=== PATIENT | female | born 1965 | race Caucasian/White ===

== ENCOUNTER 2017-07-09 19:03 | Observation (INO) ==
--- NOTE | 2017-07-09 19:26 | Emergency Department Note ---
SOB HPI - General Chief Complaint: Shortness of Breath/Dyspnea Stated Complaint: shortness of breath, cough Time Seen by Provider: 07/09/17 19:21 Source: patient Mode of arrival: EMS Limitations: no limitations - History of Present Illness This patient was diagnosed with flu about 10 days ago and about 3 days ago she developed fairly significant cough shortness of breath and chest pain. However no nausea vomiting no fever and chills and she has been eating and drinking. Her vital signs here certainly do not look like sepsis but we will certainly check for that. - Related Data Home Medications Medication Instructions Recorded Confirmed Unobtainable [Unobtainable] 06/30/17 06/30/17 Allergies Allergy/AdvReac Type Severity Reaction Status Date / Time ciprofloxacin [From Cipro] Allergy Mild Hives Verified 07/09/17 19:08 methocarbamol [From Robaxin] Allergy Mild Hives Verified 07/09/17 19:08 nitrofurantoin Allergy Mild Hives Verified 07/09/17 19:08 [From Macrobid] Sulfa (Sulfonamide Allergy Mild Hives Verified 07/09/17 19:08 Antibiotics) codeine AdvReac Intermediate Agitated Verified 07/09/17 19:08 meperidine [From Demerol] AdvReac Mild Vomiting Verified 07/09/17 19:08 Review of Systems All systems ED: reviewed and negative except as stated. Past Medical History - Past Medical History Medical history: Reports: DM, thyroid disease, other (Chronic back pain) Surgical history ED: Reports: non-contributory, cholecystectomy, other (Kidney stone 3) - Social History smoking status: Never smoker Physical Exam Limitations: no limitations General appearance: alert Head: atraumatic Eye: Present: normal appearance ENT: normal exam Neck: Present: normal inspection Chest: Present: normal inspection Respiratory: Present: normal lung sounds bilaterally Cardiovascular: Present: regular rate, normal rhythm, normal heart sounds Abdominal: Present: soft. Absent: distention, tenderness Neurological: Present: alert Psychiatric: Present: normal affect, normal mood Skin: Present: warm, dry, intact Course Vital Signs Temperature 98.0 F 07/09/17 19:04 Pulse Rate 85 07/09/17 19:04 Respiratory Rate 22 07/09/17 19:04 Blood Pressure 130/81 07/09/17 19:04 Pulse Oximetry (%) 98 07/09/17 19:04 Temperature 98.0 F 07/09/17 19:04 Pulse Rate 87 07/09/17 20:10 Respiratory Rate 20 07/09/17 20:10 Blood Pressure 130/81 07/09/17 19:04 Pulse Oximetry (%) 98 07/09/17 19:04 Shortness of Breath/Dyspnea - [facility] Narrative Medical decision making narrative: Patient only abnormality is an elevated lactic acid of 4.5. We did do blood cultures and gave her Levaquin. She will be admitted to the hospital overnight. - Medical Records Medical records reviewed: Yes I reviewed the patient's medical records. - Lab Data Result diagrams: 07/09/17 19:29 07/09/17 19:29 Lab Results 07/09/17 07/09/17 07/09/17 Range/Units 19:29 19:29 19:29 WBC 8.9 (4.5-11.0) K/mcL RBC 5.24 H (4.00-5.20) M/mcL Hgb 14.0 (12.0-15.0) g/dL Hct 42.1 (36.0-48.0) % MCV 80.3 (80.0-100.0) fL MCH 26.8 (26.0-34.0) pg MCHC 33.3 (31.0-36.0) g/dL RDW 15.6 H (11.5-14.5) % Plt Count 252 (140-440) K/mcL MPV 8.3 (7.4-10.4) fL Gran % 60.8 (38.0-78.0) % Lymph % (Auto) 30.6 (15.5-49.0) % Hale % (Auto) 5.2 (1.0-12.0) % Eos % (Auto) 3.0 (0.0-7.0) % Baso % (Auto) 0.4 (0.0-2.0) % Gran # 5.4 (1.8-8.0) K/mcL Lymph # (Auto) 2.7 (1.5-4.8) K/mcL Hale # (Auto) 0.5 (0.1-0.9) K/mcL Eos # (Auto) 0.3 (0.0-0.7) K/mcL Baso # (Auto) 0 (0.0-0.3) K/mcL VBG Lactic Acid 4.5 H* (0.5-2.2) mmol/L Sodium 136 (133-145) mmol/L Potassium 4.4 (3.3-5.1) mmol/L Chloride 96 (96-108) mmol/L Carbon Dioxide 22 (22-30) mmol/L Anion Gap 18.0 H (8-16) BUN 9 (6-20) mg/dl Creatinine 0.7 (0.6-1.1) mg/dl GFR Calculation 99 Glucose 235 H (70-105) mg/dL Calcium 9.0 (8.6-10.4) mg/dl Total Bilirubin 0.2 (0.0-1.0) mg/dL AST 26 (0-37) U/l ALT 23 (0-40) U/l Alkaline Phosphatase 64 (39-117) U/L Total Protein 7.2 (5.9-8.4) gm/dL Albumin 4.3 (3.2-5.2) gm/dL Globulin 2.9 (2.2-3.7) gm/dL Albumin/Globulin Ratio 1.5 (1.0-2.3) Disposition 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
[2017-07-09 20:08] LABS: Basophils # (Auto) 0 K/mcL (0.0-0.3); Basophils % (Auto) 0.4 % (0.0-2.0); Eosinophils # (Auto) 0.3 K/mcL (0.0-0.7); Granulocytes % (Auto) 60.8 % (38.0-78.0); Lymphocytes # (Auto) 2.7 K/mcL (1.5-4.8); Lymphocytes % (Auto) 30.6 % (15.5-49.0); Mean Cell Volume 80.3 fL (80.0-100.0); Mean Corpuscular HGB Conc 33.3 g/dL (31.0-36.0); Mean Corpuscular Hemoglobin 26.8 pg (26.0-34.0); Monocytes # (Auto) 0.5 K/mcL (0.1-0.9); Monocytes % (Auto) 5.2 % (1.0-12.0); Platelet Count 252 K/mcL (140-440); RBC 5.24 M/mcL (4.00-5.20); Red Cell Distribution Width 15.6 % (11.5-14.5)
[2017-07-09] MEDS ORDERED: IPRATROPIUM/ALBUTEROL 3 ML AMPUL.NEB NEB ONE (20:09)
[2017-07-09 20:26] LABS: ALT/SGPT 23 U/l (0-40); Albumin 4.3 gm/dL (3.2-5.2); Albumin/Globulin Ratio 1.5 (1.0-2.3); Alkaline Phosphatase 64 U/L (39-117); Blood Urea Nitrogen 9 mg/dl (6-20)
[2017-07-09] MEDS ORDERED: LEVOFLOXACIN 750 MG/150 ML BAG IV ONE (20:28)
[2017-07-09] MEDS ORDERED: LACTATED RINGERS 1,000 ML IV ONE (20:38)
--- NOTE | 2017-07-09 22:03 | Internal Med History&Physical ---
Medical - H&P: [facility] Patient information: Note initiated : 07/09/17 at 10:03 pm Service Date, if different from initiated Date: [] Patient: Maggie Mccray 52 y/o F admitted on for shortness of breath, cough. Chief Complaint: cough, dyspnea History of present illness: Patient is a 52-year-old female with history of type 2 diabetes, hypothyroidism , hypertension, morbid obesity who presents the emergency department with dyspnea. She was seen at this facility on June 30, diagnosed with influenza and dehydration. She returned home, started feeling better late last week. However on Friday she had the onset of fairly severe cough. Her chest was "killing me" due to parasternal chest pain that occurred with coughing. She is also having pain along the lower margins of her rib cage with coughing. She is coughing so hard she is having trouble getting her breath at times. She is producing some yellowish phlegm at times. She has felt sweaty without any chills and has had no fever that she knows. Since Friday she's had dyspnea on exertion. She does have an inhaler at home, that may help somewhat. She is also started to lose her voice. She has had some headache, some sore throat which he thinks is from the coughing. She said no lower extremity edema, no sinus congestion. No nausea, vomiting, diarrhea or abdominal pain. No dysuria. She does have some tingling in her feet related to her nephropathy. She's been able to maintain good oral intake. Her glucoses of been a bit out of control running in the 170 range recently. She presents to ED for further evaluation. Initially, does not look particularly ill. Laboratories were sent, lactate returns at 4.5. However she does not have fever, she does not have tachycardia, she saturating well on room air, she does not have leukocytosis. She is being hospitalized for further monitoring and hydration and evaluation of lactic acidosis. She has received fluids and levofloxacin in the ED. Blood cultures have been obtained. All systems: reviewed and no additional remarkable complaints except as stated Medical - H&P: PMH Medical history: Type 2 diabetes mellitus with neuropathy Hypothyroidism Chronic back pain Hypertension Hypercholesterolemia Depression Tremors Morbid obesity Surgical history: Status post cholecystectomy Status post kidney stone removal Pertinent family history: Brother has breast cancer. Another brother has lymphoma. Also history of diabetes and hypertension the family. Social history: She does not smoke cigarettes. She does not drink alcohol. Medical - H&P: Meds Home Medications Medication Instructions Recorded Confirmed Type Ascorbic Acid [Vitamin C] 1,000 mg PO QDAY 07/09/17 07/09/17 History Aspirin [Yenni Chewable Aspirin] 81 mg PO QDAY 07/09/17 07/09/17 History Atorvastatin [Lipitor] 40 mg PO ONCE 07/09/17 07/09/17 History Bisoprolol Fumarate 5 mg PO HS 07/09/17 07/09/17 History Cranberry 15,000 mg PO BID 07/09/17 07/09/17 History Cyanocobalamin (Vitamin B-12) 1,000 mcg PO QDAY 07/09/17 07/09/17 History [Vitamin B12] Echinacea 760 mg PO QDAY 07/09/17 07/09/17 History Empagliflozin/Metformin HCl 1 each PO QDAY 07/09/17 07/09/17 History [Synjardy Xr 10-1,000 mg Tablet] Escitalopram [Lexapro] 20 mg PO DAILY 07/09/17 07/09/17 History Gabapentin [Neurontin] 600 mg PO TID 07/09/17 07/09/17 History LORazepam [Ativan] 1 mg PO TIDP MDD 4 mg 07/09/17 07/09/17 History Levothyroxine [Synthroid] 200 mcg PO DAILY 07/09/17 07/09/17 History Losartan Potassium [Cozaar] 25 mg PO BID 07/09/17 07/09/17 History Omeprazole [PriLOSEC] 20 mg PO BID 07/09/17 07/09/17 History PHENobarbital [Phenobarbital] 2 tab PO HS 07/09/17 07/09/17 History PHENobarbital [Phenobarbital] 32.4 mg PO QDAY 07/09/17 07/09/17 History Potassium Chloride [Klor-Con M10] 10 meq PO BID 07/09/17 07/09/17 History Pramipexole [Mirapex] 0.125 mg PO TID 07/09/17 07/09/17 History Spironolactone [Aldactone] 100 mg PO QDAY 07/09/17 07/09/17 History Tylenol 1,000 mg PO PRN 07/09/17 History traMADol HCL [Ultram] 50 mg PO Q6HP PRN 07/09/17 07/09/17 History Allergies Allergy/AdvReac Type Severity Reaction Status Date / Time ciprofloxacin [From Cipro] Allergy Mild Hives Verified 07/09/17 19:08 methocarbamol [From Robaxin] Allergy Mild Hives Verified 07/09/17 19:08 nitrofurantoin Allergy Mild Hives Verified 07/09/17 19:08 [From Macrobid] Sulfa (Sulfonamide Allergy Mild Hives Verified 07/09/17 19:08 Antibiotics) codeine AdvReac Intermediate Agitated Verified 07/09/17 19:08 meperidine [From Demerol] AdvReac Mild Vomiting Verified 07/09/17 19:08 Medical - H&P: Exam - Constitutional Vitals: Temp Pulse Resp BP Pulse Ox 98.0 F 86 20 133/78 96 07/09/17 19:04 07/09/17 21:31 07/09/17 20:10 07/09/17 21:31 07/09/17 21:31 Exam: General: Alert, uncomfortable-appearing HEENT: Normocephalic. Pupils are equally round and reactive to light. Sclera are anicteric. No conjunctival injection. Oropharynx is with moist mucous membranes, no lip or gum lesions. Tongue is midline. Neck: Supple, no meningismus. No thyromegaly. Chest: Scattered expiratory wheezes, respirations are mildly labored, no rales or rhonchi. Cardiovascular: Regular rate and rhythm without murmur gallop or rub. Carotid pulses are 2+ without bruit. There is no lower extremity edema. Abdomen: Soft, obese, nontender without guarding or rebound. Active bowel sounds. No hepatosplenomegaly cannot be evaluated due to body habitus. Lymphatic: No cervical or supraclavicular lymphadenopathy. Skin: Warm, dry. Skin turgor is normal Musculoskeletal: No joint erythema or tenderness. Normal range of motion in the upper and lower extremities. Strength 5/5 in upper and lower extremities. Digits without cyanosis or clubbing. Neuro: Alert, oriented X3. Cranial nerves II through XII grossly intact. Sensation intact to light touch. DTR trace in the upper and lower extremity. Psychiatric: Affect and orientation are normal. Good insight. Medical - H&P: Reslt - Labs CBC & Chem 7: 07/09/17 19:29 07/09/17 19:29 Labs: Short CBC 07/09/17 Range/Units 19:29 WBC 8.9 (4.5-11.0) K/mcL Hgb 14.0 (12.0-15.0) g/dL Hct 42.1 (36.0-48.0) % Plt Count 252 (140-440) K/mcL BMP 07/09/17 19:29 Sodium 136 Potassium 4.4 Chloride 96 Carbon Dioxide 22 BUN 9 Creatinine 0.7 Glucose 235 H Calcium 9.0 Liver Function 07/09/17 Range/Units 19:29 Total Bilirubin 0.2 (0.0-1.0) mg/dL AST 26 (0-37) U/l ALT 23 (0-40) U/l Alkaline Phosphatase 64 (39-117) U/L Albumin 4.3 (3.2-5.2) gm/dL Abnormal Lab Results 07/09/17 07/09/17 07/09/17 19:29 19:29 19:29 RBC 5.24 H RDW 15.6 H VBG Lactic Acid 4.5 H* Anion Gap 18.0 H Glucose 235 H - Imaging and Cardiology Chest x-ray Status: image reviewed by me (Poor inspiratory effort, similar to 06/30/17) Medical - H&P: A/P (1) Lactic acidosis Current visit: Yes Status: Acute (2) Acute bronchospasm due to viral infection Current visit: Yes Status: Acute (3) Type 2 diabetes mellitus with diabetic neuropathy Current visit: Yes Status: Chronic (4) Hypertension Current visit: Yes Status: Chronic - Narrative A/P Narrative: 52-year-old female presents with progressive cough and dyspnea. Found to have isolated elevated lactate without evidence of sepsis or SIRS. Lactic acidosis. Could be secondary to dehydration from cough and insensible losses. No evidence of SIRS, no tachycardia, no tachypnea, no leukocytosis. Lower suspicion for sepsis given her presentation. Other potential etiologies could include metformin which is included in one of her antidiabetic medications , though this again, and outside this a.m. of renal or hepatic failure. Patient has been cultured in the ED, received a dose of Rocephin. Given her multiple comorbidities, she'll be hospitalized and observed overnight to ensure improvement. Plan: Observation hospitalization, hydration, trend lactate. Acute bronchospasm secondary to viral infection. Patient with significant bronchospasm, which is likely contributing to her cough. Could be post- influenza bronchospasm. Chest x-ray does not suggest a pneumonia. Plan: Scheduled albuterol nebs with when necessary every 2 hours. Type 2 diabetes mellitus. She is on Toujeo, Victoza and Synjardi. During acute hospitalization will manage with insulin and sliding scale. Plan: Diabetic diet, Accu-Cheks, sliding scale insulin Hypertension. Blood pressure controlled currently. Plan: Continue home regimen. Prophylaxis: Subcutaneous Lovenox. CODE STATUS: Full code
[2017-07-09] MEDS ORDERED: PHENobarbital 32.4 MG TABLET PO SCH ×2 (22:24→23:40)
[2017-07-09] MEDS ORDERED: LORazepam 1 MG TABLET PO PRN (22:24)
[2017-07-09] MEDS ORDERED: guaiFENesin/CODEINE 10 ML UDC PO PRN (22:24)
[2017-07-09] MEDS ORDERED: DEXTROSE 31 GM ORAL.SUSP PO PRN (22:24)
[2017-07-09] MEDS ORDERED: DEXTROSE 50% 50 ML VIAL IV PRN (22:24)
[2017-07-09] MEDS ORDERED: ALBUTEROL SULFATE 2.5 MG/3 ML NEBULIZER NEB PRN (22:24)
[2017-07-09] MEDS ORDERED: ONDANSETRON 4 MG/2 ML VIAL IV PRN (22:24)
[2017-07-09] MEDS: 0.9 % SODIUM CHLORIDE 10 ML SYRINGE IV SCH (23:06)
[2017-07-09] MEDS: 0.9 % SODIUM CHLORIDE 1,000 ML IV SCH (23:06)
[2017-07-09] MEDS ORDERED: GABAPENTIN 300 MG CAPSULE ONE (23:52)
[2017-07-09] MEDS ORDERED: PHENobarbital 32.4 MG TABLET ONE (23:52)
[2017-07-09] MEDS ORDERED: traMADol 50 MG TABLET PO ONE (23:54)
[2017-07-09] MEDS ORDERED: INSULIN LISPRO 1 UNIT/0.01 ML UNIT SQ ONE (23:55)
[2017-07-09] MEDS ORDERED: LORazepam 1 MG TABLET ONE (23:55)
[2017-07-09] MEDS ORDERED: ACETAMINOPHEN 325 MG TABLET PO ONE (23:56)
[2017-07-10] MEDS ORDERED: ALBUTEROL SULFATE 2.5 MG/3 ML NEBULIZER ONE (00:19)
[2017-07-10] MEDS: guaiFENesin/DEXTROMETHORPHAN ORAL SOL PO PRN ×4 (00:35→17:16)
[2017-07-10] MEDS: ALBUTEROL SULFATE 2.5 MG/3 ML NEBULIZER NEB SCH ×4 (00:55→12:20)
[2017-07-10 02:52] LABS: Appearance,Urine HAZY; Bacteria,Urine 0 /hpf (0); Bilirubin,Urine NEG (NEG); Color,Urine YELLOW; Glucose,Urine (UA) >=500 mg/dL (NEG); Leukocyte Esterase,Urine 250 /uL (NEG); Mucus,Urine FEW /hpf (0); Protein,Urine NEG (NEG); Specific Gravity,Urine 1.041 (1.000-1.035); Urine Blood NEG mg/dL (<0.03); Urine Budding Yeast FEW /hpf (0); Urine RBC 13 /hpf (0-1); Urine Squamous Epithelial Cell 3 /hpf (0-4); Urine Transitional Epi Cells < 1 /hpf (0-2); Urine WBC 80 /hpf (0-4); Urobilinogen,Urine NEG (NEG)
[2017-07-10] MEDS: 0.9 % SODIUM CHLORIDE 10 ML SYRINGE IV SCH ×2 (05:05→13:22)
--- NOTE | 2017-07-10 06:07 | XRay Report ---
CLINICAL INFORMATION: Cough COMPARISON: 05/24/2017 and 04/29/2018 chest x-rays FINDINGS: Film taken in lordotic positioning, right rotation rotation and suboptimal inspiration which accentuates the cardiomediastinal silhouette. Pulmonary vessels are unremarkable. Small right basilar infiltrate is developed with minor airspace in the left base. No definite effusion IMPRESSION: Small right basilar infiltrate suspect developing left basilar infiltrate. Mild cardiomegaly Potential widening of the mediastinum. Patient should return for two view PA and lateral chest x-ray to reevaluate the mediastinum to exclude adenopathy in other pathology Interpreted and Authenticated by: Dean Green 07/10/17
[2017-07-10 06:56] LABS: Mean Cell Volume 80.7 fL (80.0-100.0); Mean Corpuscular HGB Conc 32.9 g/dL (31.0-36.0); Mean Corpuscular Hemoglobin 26.6 pg (26.0-34.0); Platelet Count 209 K/mcL (140-440); RBC 4.71 M/mcL (4.00-5.20); Red Cell Distribution Width 15.4 % (11.5-14.5)
[2017-07-10 07:27] LABS: Blood Urea Nitrogen 9 mg/dl (6-20)
[2017-07-10] MEDS ORDERED: LEVOTHYROXINE 100 MCG TABLET PO SCH (07:30)
[2017-07-10] MEDS: ACETAMINOPHEN 325 MG TABLET PO PRN ×2 (07:31→13:26)
[2017-07-10] MEDS: OMEPRAZOLE 20 MG CAPSULE PO SCH ×2 (07:31→17:16)
[2017-07-10] MEDS: traMADol 50 MG TABLET PO PRN ×2 (07:31→13:26)
[2017-07-10] MEDS ORDERED: 0.9 % SODIUM CHLORIDE 1,000 ML IV ONE (07:55)
[2017-07-10 08:04] LABS: Eosinophils % (Manual) 1 % (0-7); Lymphocytes % 42 % (15-49); Monocytes % (Manual) 4 % (1-12); Platelet Estimate NORMAL (NORMAL); RBC Morphology NORMAL (NORMAL); Segmented Neutrophils % 53 % (38-78)
[2017-07-10] MEDS: PRAMIPEXOLE 0.25 MG TABLET PO SCH ×2 (08:23→15:38)
[2017-07-10] MEDS: POTASSIUM CHLORIDE 10 MEQ TABLET PO SCH ×2 (08:24→17:41)
[2017-07-10] MEDS: GABAPENTIN 300 MG CAPSULE PO SCH ×2 (08:24→15:36)
[2017-07-10] MEDS: INSULIN LISPRO 1 UNIT/0.01 ML UNIT SQ SCH ×3 (08:25→17:25)
[2017-07-10 08:34] LABS: Estimated Average Glucose(eAG) 206 mg/dL; Hemoglobin A1C 8.8 % HGB (4.0-6.0)
[2017-07-10] MEDS: 0.9 % SODIUM CHLORIDE 1,000 ML IV SCH ×2 (08:47→17:41)
[2017-07-10] MEDS ORDERED: ENOXAPARIN 40 MG/0.4 ML SYRINGE SQ SCH (09:00)
[2017-07-10] MEDS ORDERED: LORATADINE 10 MG TABLET PO SCH (09:00)
[2017-07-10] MEDS ORDERED: SPIRONOLACTONE 25 MG TABLET PO SCH (09:00)
[2017-07-10] MEDS ORDERED: LOSARTAN 25 MG TABLET PO SCH (09:00)
[2017-07-10] MEDS ORDERED: ASPIRIN 81 MG TAB.CHEW PO SCH (09:00)
[2017-07-10] MEDS ORDERED: GABAPENTIN 300 MG CAPSULE PO SCH ×2 (09:00→21:00)
[2017-07-10] MEDS ORDERED: ESCITALOPRAM 20 MG TABLET PO SCH (09:00)
[2017-07-10] MEDS ORDERED: PHENobarbital 32.4 MG TABLET PO SCH (09:00)
[2017-07-10] MEDS ORDERED: ALBUTEROL SULFATE 2.5 MG/3 ML NEBULIZER NEB SCH (11:00)
[2017-07-10] MEDS ORDERED: LEVOFLOXACIN 500 MG/100 ML BAG IV SCH (12:00)
[2017-07-10] MEDS ORDERED: 0.9 % SODIUM CHLORIDE 500 ML IV ONE (13:29)
[2017-07-10] MEDS ORDERED: FLUCONAZOLE 100 MG TABLET PO ONE (17:26)
--- NOTE | 2017-07-10 18:10 | Discharge Summary ---
Medical - DS: Prov Patient information: Note initiated : 07/10/17 at 6:06 pm Service Date, if different from initiated Date: [] Patient: Maggie Mccray 52 y/o F admitted on 07/09/17 for SOB, Cough/ Progressive Cough and Dyspnea, elevated lactate. Date of admission: 07/09/17 22:22 Discharge date: 07/10/17 Primary care physician: Stella Mckinley Admitting clinician: Estelle Concepcion Discharging clinician: Estelle Concepcion Medical - DS: Meds - Discharge Medications Prescriptions: Levofloxacin [Levaquin] 500 mg PO DAILY #3 tab Active and Home Medications: Home Medications Ascorbic Acid [Vitamin C] 1,000 mg PO QDAY 07/09/17 [History Confirmed 07/09/17 Last Taken 07/09/17 10:00] Aspirin [Yenni Chewable Aspirin] 81 mg PO QDAY 07/09/17 [History Confirmed 07/09 Last Taken 07/09/17 10:00] Atorvastatin [Lipitor] 40 mg PO HS 07/09/17 [History Confirmed 07/10/17 Last Taken 07/08/17 20:00] Bisoprolol Fumarate 5 mg PO HS 07/09/17 [History Confirmed 07/09/17 Last Taken 07/08/17 20:00] Cranberry 15,000 mg PO BID 07/09/17 [History Confirmed 07/09/17 Last Taken 07/09 10:00] Cyanocobalamin (Vitamin B-12) [Vitamin B12] 1,000 mcg PO QDAY 07/09/17 [History Confirmed 07/09/17 Last Taken 07/09/17 10:00] Echinacea 760 mg PO QDAY 07/09/17 [History Confirmed 07/09/17 Last Taken 10:00] Empagliflozin/Metformin HCl [Synjardy Xr 10-1,000 mg Tablet] 1 each PO QDAY [History Confirmed 07/09/17 Last Taken 07/09/17 10:00] Escitalopram [Lexapro] 20 mg PO DAILY 07/09/17 [History Confirmed 07/09/17 Last Taken 07/09/17 10:00] Gabapentin [Neurontin] 600 mg PO TID 07/09/17 [History Confirmed 07/09/17 Last Taken 07/09/17 15:00] Insulin Glargine,Hum.rec.anlog [Toujeo Solostar] 35 ml SQ DAILY 07/09/17 [ History Confirmed 07/09/17 Last Taken 07/09/17 10:00] LORazepam [Ativan] 1 mg PO TIDP MDD 4 mg 07/09/17 [History Confirmed 07/09/17 Last Taken 07/09/17 11:00] Levothyroxine [Synthroid] 200 mcg PO DAILY 07/09/17 [History Confirmed 07/09/17 Last Taken 07/08/17 10:00] Liraglutide [Victoza 2-Shahbaz] 1.8 ml SC DAILY 07/09/17 [History Confirmed Last Taken 07/09/17 10:00] Losartan Potassium [Cozaar] 25 mg PO BID 07/09/17 [History Confirmed 07/09/17 Last Taken 07/09/17 10:00] Omeprazole [PriLOSEC] 20 mg PO BID 07/09/17 [History Confirmed 07/09/17 Last Taken 07/09/17 10:00] PHENobarbital [Phenobarbital] 2 tab PO HS 07/09/17 [History Confirmed 07/09/17 Last Taken 07/08/17 21:00] PHENobarbital [Phenobarbital] 32.4 mg PO QDAY 07/09/17 [History Confirmed Last Taken 07/09/17 10:00] Potassium Chloride [Klor-Con M10] 10 meq PO BID 07/09/17 [History Confirmed Last Taken 07/09/17 10:00] Pramipexole [Mirapex] 0.125 mg PO TID 07/09/17 [History Confirmed 07/09/17 Last Taken 07/09/17 11:00] Spironolactone [Aldactone] 100 mg PO QDAY 07/09/17 [History Confirmed 07/09/17 Last Taken 07/09/17 10:00] Tylenol 1,000 mg PO TIDP PRN 07/09/17 [History Confirmed 07/10/17 Last Taken 11:00] traMADol HCL [Ultram] 50 mg PO Q6HP PRN 07/09/17 [History Confirmed 07/09/17 Last Taken 07/09/17 11:00] Medical - DS: Hosp Hospital course: 2/14 Patient is a 52-year-old female with history of type 2 diabetes, hypothyroidism , hypertension, morbid obesity who presents the emergency department with dyspnea. She was seen at this facility on June 30, diagnosed with influenza and dehydration. She returned home, started feeling better late last week. However on Friday she had the onset of fairly severe cough. Her chest was "killing me" due to parasternal chest pain that occurred with coughing. She is also having pain along the lower margins of her rib cage with coughing. She is coughing so hard she is having trouble getting her breath at times. She is producing some yellowish phlegm at times. She has felt sweaty without any chills and has had no fever that she knows. Since Friday she's had dyspnea on exertion. She does have an inhaler at home, that may help somewhat. She is also started to lose her voice. She has had some headache, some sore throat which he thinks is from the coughing. She said no lower extremity edema, no sinus congestion. No nausea, vomiting, diarrhea or abdominal pain. No dysuria. She does have some tingling in her feet related to her nephropathy. She's been able to maintain good oral intake. Her glucoses of been a bit out of control running in the 170 range recently. She presents to ED for further evaluation. Initially, does not look particularly ill. Laboratories were sent, lactate returns at 4.5. However she does not have fever, she does not have tachycardia, she saturating well on room air, she does not have leukocytosis. She is being hospitalized for further monitoring and hydration and evaluation of lactic acidosis. She has received fluids and levofloxacin in the ED. Blood cultures have been obtained. 07/10 Patient remained afebrile, lactate slowly trended down to normal with fluid hydration. She remained alert, extremities warm and perfused and maintained good urine output. Urinalysis was abnormal with white cells, some red cells, budding yeast but only 1 bacterium. She was continued on levofloxacin in the hospital (she has a Cipro allergy but tolerated Levaquin). She'll be discharged with levofloxacin to complete a 5 day course short course for possible urinary tract infection. She is also complaining of possible yeast infection, received single-dose therapy with 100 mg Diflucan while in the hospital. The patient's wheezing and cough improved. She was treated with albuterol. That did cause some jitteriness and discomfort, that was changed to when necessary. Patient's admission chest radiograph was formally read as possible small right infiltrate. She'll be continued on a total of 5 days of fluoroquinolone for possible bacterial pneumonia. Cultures remained without growth. Her white count remained normal. Vital signs remained stable. There is no evidence of systemic inflammatory response syndrome or sepsis. Her asthmatic bronchitis secondary to viral upper respiratory tract infection is improved. She is discharged to home. Etiology of her lactate may have been secondary to significant dehydration from her antecedent viral illness, though she displayed no evidence of systemic hypoperfusion. Metformin therapy is also a possibility, though acidosis associated with that is usually in conjunction with renal failure or overdose. The patient will be asked to hold her metformin combination (Synjardy) for the next week. Discharge diagnosis: Lactic acidosis, undetermined etiology. Not a sepsis diagnosis. Secondary discharge diagnosis: Post-viral asthmatic bronchitis, improved Urinary tract infection Possible right lower lobe infiltrate Type 2 DM - Time Spent with Patient Total time spent providing and/or coordinating discharge services: Greater than 30 minutes Medical - DS: Exam - Constitutional Vitals: Vital Signs Temp Pulse Pulse Resp BP BP Pulse Ox 07/10/17 15:50 96.5 F L 18 147/79 96 07/10/17 14:57 16 07/10/17 13:28 75 14 137/80 97 07/10/17 12:41 98.8 F 78 16 149/78 97 07/10/17 12:00 97.6 F 18 147/79 95 07/10/17 11:49 98 07/10/17 11:47 83 21 07/10/17 07:59 97.1 F 18 142/92 95 07/10/17 04:00 98.5 F 90 22 163/80 97 07/09/17 22:23 98.7 F 84 18 134/80 97 07/09/17 22:22 98.7 F 84 18 134/80 97 07/09/17 21:31 86 133/78 96 07/09/17 21:01 134/82 07/09/17 20:38 136/119 07/09/17 20:10 87 20 07/09/17 20:01 144/117 07/09/17 19:54 84 127/93 96 07/09/17 19:04 98.0 F 85 22 130/81 98 Intake and Output 07/10/17 07/10/17 07/10/17 05:59 13:59 21:59 Intake Total 2390 / 2390 2660 / 2660 1100 / 1100 Output Total 925 / 925 1425 / 1425 550 / 550 Balance 1465 / 1465 1235 / 1235 550 / 550 Intake: IV 1150 / 1150 1100 / 1100 500 / 500 Sodium Chloride 0.9% 500 ml @ 500 / 500 Wide Open IV BOLUS ONE Rx#: [id number] Lactated Ringers 1,000 ml @ 1000 / 1000 Wide Open IV BOLUS ONE Rx#: [id number] Oral 1240 / 1240 1560 / 1560 600 / 600 Output: Void Amount 925 / 925 1425 / 1425 550 / 550 Other: Meal [employer] Lunch Dinner Percent of Meal Consumed 100% 100% 100% Feeding Ability Independent # Voids 1 Weight 310 lb Additional comments: General: Sitting in bed, looks comfortable Chest: Clear to auscultation with good aeration, no prolonged expiratory phase, no wheezing or rhonchi Cardio vascular: Regular rate and rhythm Abdomen: Soft nontender Neuro: Alert, oriented 3, no new findings, has stable lower extremity neuropathy Medical - DS: Data Labs on day of discharge: Laboratory Results - last 24 hr 07/09/17 07/09/17 07/09/17 02:17 19:29 19:29 WBC 8.9 RBC 5.24 H Hgb 14.0 Hct 42.1 MCV 80.3 MCH 26.8 MCHC 33.3 RDW 15.6 H Plt Count 252 MPV 8.3 Gran % 60.8 Lymph % (Auto) 30.6 Wells % (Auto) 5.2 Eos % (Auto) 3.0 Baso % (Auto) 0.4 Gran # 5.4 Lymph # (Auto) 2.7 Wells # (Auto) 0.5 Eos # (Auto) 0.3 Baso # (Auto) 0 Total Counted Seg Neutrophils % Band Neutrophils % Lymphocytes % Monocytes % (Manual) Eosinophils % (Manual) Platelet Estimate RBC Morphology VBG Lactic Acid Sodium 136 Potassium 4.4 Chloride 96 Carbon Dioxide 22 Anion Gap 18.0 H BUN 9 Creatinine 0.7 GFR Calculation 99 Glucose 235 H Hemoglobin A1c Estim Average Glucose Calcium 9.0 Total Bilirubin 0.2 AST 26 ALT 23 Alkaline Phosphatase 64 Total Protein 7.2 Albumin 4.3 Globulin 2.9 Albumin/Globulin Ratio 1.5 Urine Color Yellow Urine Appearance Hazy Urine pH 5.0 Ur Specific [place] 1.041 H Urine Protein Neg Urine Glucose (UA) >=500 A Urine Ketones 5/tr A Urine Occult Blood Neg Urine Nitrate Neg Urine Bilirubin Neg Urine Urobilinogen Neg Ur Leukocyte Esterase 250 A Urine RBC 13 H Urine WBC 80 H Ur Squamous Epith Cells 3 Ur Transition Epith Cell < 1 Urine Bacteria 0 Urine Mucus Few Urine Yeast (Budding) Few A Ur Culture Indicated? Yes 07/09/17 07/10/17 07/10/17 19:29 00:58 04:05 WBC RBC Hgb Hct MCV MCH MCHC RDW Plt Count MPV Gran % Lymph % (Auto) Wells % (Auto) Eos % (Auto) Baso % (Auto) Gran # Lymph # (Auto) Wells # (Auto) Eos # (Auto) Baso # (Auto) Total Counted Seg Neutrophils % Band Neutrophils % Lymphocytes % Monocytes % (Manual) Eosinophils % (Manual) Platelet Estimate RBC Morphology VBG Lactic Acid 4.5 H* 3.1 H Sodium 139 Potassium 3.7 Chloride 102 Carbon Dioxide 23 Anion Gap 14.0 BUN 9 Creatinine 0.6 GFR Calculation 104 Glucose 194 H Hemoglobin A1c Estim Average Glucose Calcium 8.4 L Total Bilirubin AST ALT Alkaline Phosphatase Total Protein Albumin Globulin Albumin/Globulin Ratio Urine Color Urine Appearance Urine pH Ur Specific [place] Urine Protein Urine Glucose (UA) Urine Ketones Urine Occult Blood Urine Nitrate Urine Bilirubin Urine Urobilinogen Ur Leukocyte Esterase Urine RBC Urine WBC Ur Squamous Epith Cells Ur Transition Epith Cell Urine Bacteria Urine Mucus Urine Yeast (Budding) Ur Culture Indicated? 07/10/17 07/10/17 07/10/17 05:05 05:05 05:05 WBC 7.6 RBC 4.71 Hgb 12.5 Hct 38.0 MCV 80.7 MCH 26.6 MCHC 32.9 RDW 15.4 H Plt Count 209 MPV 8.3 Gran % Lymph % (Auto) Wells % (Auto) Eos % (Auto) Baso % (Auto) Gran # Lymph # (Auto) Wells # (Auto) Eos # (Auto) Baso # (Auto) Total Counted 100 Seg Neutrophils % 53 Band Neutrophils % Not Reportable Lymphocytes % 42 Monocytes % (Manual) 4 Eosinophils % (Manual) 1 Platelet Estimate Normal RBC Morphology Normal VBG Lactic Acid 3.2 H Sodium Potassium Chloride Carbon Dioxide Anion Gap BUN Creatinine GFR Calculation Glucose Hemoglobin A1c 8.8 H Estim Average Glucose 206 Calcium Total Bilirubin AST ALT Alkaline Phosphatase Total Protein Albumin Globulin Albumin/Globulin Ratio Urine Color Urine Appearance Urine pH Ur Specific [place] Urine Protein Urine Glucose (UA) Urine Ketones Urine Occult Blood Urine Nitrate Urine Bilirubin Urine Urobilinogen Ur Leukocyte Esterase Urine RBC Urine WBC Ur Squamous Epith Cells Ur Transition Epith Cell Urine Bacteria Urine Mucus Urine Yeast (Budding) Ur Culture Indicated? 07/10/17 07/10/17 12:11 16:53 WBC RBC Hgb Hct MCV MCH MCHC RDW Plt Count MPV Gran % Lymph % (Auto) Wells % (Auto) Eos % (Auto) Baso % (Auto) Gran # Lymph # (Auto) Wells # (Auto) Eos # (Auto) Baso # (Auto) Total Counted Seg Neutrophils % Band Neutrophils % Lymphocytes % Monocytes % (Manual) Eosinophils % (Manual) Platelet Estimate RBC Morphology VBG Lactic Acid 2.5 H 1.7 Sodium Potassium Chloride Carbon Dioxide Anion Gap BUN Creatinine GFR Calculation Glucose Hemoglobin A1c Estim Average Glucose Calcium Total Bilirubin AST ALT Alkaline Phosphatase Total Protein Albumin Globulin Albumin/Globulin Ratio Urine Color Urine Appearance Urine pH Ur Specific [place] Urine Protein Urine Glucose (UA) Urine Ketones Urine Occult Blood Urine Nitrate Urine Bilirubin Urine Urobilinogen Ur Leukocyte Esterase Urine RBC Urine WBC Ur Squamous Epith Cells Ur Transition Epith Cell Urine Bacteria Urine Mucus Urine Yeast (Budding) Ur Culture Indicated? - Imaging and Cardiology Chest x-ray Additional comments: FINDINGS: Film taken in lordotic positioning, right rotation rotation and suboptimal inspiration which accentuates the cardiomediastinal silhouette. Pulmonary vessels are unremarkable. Small right basilar infiltrate is developed with minor airspace in the left base. No definite effusion IMPRESSION: -Small right basilar infiltrate suspect developing left basilar infiltrate. -Mild cardiomegaly -Potential widening of the mediastinum. Patient should return for two view PA and lateral chest x-ray to reevaluate the mediastinum to exclude adenopathy in other pathology Medical - DS: A/P - Patient/Caregiver Discharge Instructions Activity: increase activity as tolerated Diet: Consistent Carbohydrate Additional Instructions: Follow up with your primary care physician. You should have a repeat chest x- ray in about 2 weeks. Do not take Synjardy for the next week. - Problem Maintenance (1) Lactic acidosis Status: Resolved (2) Acute bronchospasm due to viral infection Status: Acute (3) Type 2 diabetes mellitus with diabetic neuropathy Status: Chronic (4) Hypertension Status: Chronic Qualifiers: Hypertension type: essential hypertension Qualified Code(s): I10 - Essential (primary) hypertension - Follow up Plan Follow up with: Stella Mckinley ARNP [Primary Care Provider] - (1-2 weeks) Disposition: Home, Self-Care Prognosis: Good Rehab Potential: Good I certify that the patient requires SNF services: No Overall status at discharge: patient is progressing back to baseline
[2017-07-10] MEDS ORDERED: ATORVASTATIN 20 MG TABLET PO SCH (21:00)
[2017-07-10] MEDS ORDERED: BISOPROLOL 5 MG TABLET PO SCH (21:00)
== END 2017-07-10 19:15 | disposition home or self-care (01) ==
LOC: MEDSUR 19:03 → ED 19:03 → MEDSUR 22:24
PROVIDERS: ADMIT Internal Medicine; ATTEND Internal Medicine

== ENCOUNTER 2022-08-01 10:01 | Inpatient (IN) ==
[2022-08-01 10:28] LABS: POC Calcium, Ionized 1.04 (1.16-1.32); POC Potassium 3.1 (3.3-5.1)
[2022-08-01] MEDS ORDERED: 0.9 % SODIUM CHLORIDE 1,000 ML IV ONE ×3 (10:36→11:59)
--- NOTE | 2022-08-01 10:42 | Emergency Department Note ---
HPI General Chief complaint: Blood Sugar Problem Stated complaint: High Blood Glucose Time Seen by Provider: 08/01/22 10:16 Source: patient Mode of arrival: ambulatory Limitations: no limitations History of Present Illness HPI Narrative: 57-year-old morbidly obese female with Parkinson's and T2DM with chronic right great toe ulceration currently being treated at our wound care clinic presents to the ER from wound care with complaints of elevated blood sugar and mild confusion with somnolence. Upon presentation to the ER the patient's blood sugar is 527. She is denying nausea and vomiting. Caregiver is with her and states that this morning she was very fatigued, less interactive, and seemed confused. She denies that she has been having fevers. The patient states she gave herself 60 units of subcutaneo us insulin this morning after eating a few pieces of toast. Patient previously had an insulin pump, but has been fighting with insurance to get this replaced since January after [place]. She states that her blood sugars are typically well controlled, but since she has been fighting this infection in her toe there have been persistently elevated. She states that she does feel that she is able to deliver her insulin appropriately. She does take a daily dose of Tresiba 25 mg daily, and semaglutide weekly on top of her mealtime insulin. Related Data Home Medications Medication Instructions Recorded Confirmed Itzel LOYATP MIS 8MM [id number] Misc Not Applicable 06/16/19 07/22/22 liraglutide [Victoza 2-Shahbaz] 1.8 mg subcut QAM 08/16/20 07/22/22 mecobalamin (vitamin B12) 1,000 mcg PO QDAY 08/16/20 07/22/22 multivitamin (Multiple Vitamins 1 tab PO QDAY 08/16/20 07/22/22 tablet) insulin lispro 200 unit/mL (3 mL) 1 unit subcut QACBREAK 01/24/21 07/22/22 subcutaneous pen (Humalog KwikPen U-200 Insulin) cholecalciferol (vitamin D3) 25 25 mcg PO BID 04/18/21 07/22/22 mcg (1,000 unit) capsule aspirin 81 mg tablet,delayed 81 mg PO QAM 06/06/21 07/22/22 release ferrous sulfate 325 mg (65 mg 325 mg PO QDAY 06/06/21 07/22/22 iron) tablet levothyroxine 75 mcg tablet 75 mcg PO QDAY 06/06/21 07/22/22 metolazone 2.5 mg tablet 2.5 mg PO .2xw 06/06/21 07/22/22 pen needle, diabetic 31 gauge x #1,200 ea 06/06/21 07/22/22 5/16" (BD Ultra-Fine Short Pen Needle) spironolactone 100 mg tablet 100 mg PO QAM 06/06/21 07/22/22 lansoprazole 30 mg capsule,delayed 30 mg PO BID 07/03/21 07/22/22 release levothyroxine 200 mcg tablet 200 mcg PO QDAY 07/03/21 07/22/22 albuterol sulfate 90 mcg/actuation 1 puff inhalation Q4H PRN 09/17/21 07/22/22 aerosol inhaler shortness of breath or wheezing insulin regular hum U-500 conc 500 unit subcut 10/04/21 07/22/22 unit/mL(3 mL) subcut pen (Humulin R U-500 (Conc) Insulin Kwikpen) propranolol 120 mg capsule,24 120 mg PO QDAY 10/04/21 07/22/22 hr,extended release semaglutide 1 mg/dose (4 mg/3 mL) mg subcut 10/04/21 07/22/22 subcutaneous pen injector (Ozempic) torsemide 20 mg tablet 20 mg PO QAM 04/04/22 07/22/22 insulin degludec 25 units subcut (via wearable 08/01/22 08/01/22 injectr) DAILY Previous Rx's Medication Instructions Recorded clindamycin phosphate 2 % vaginal 1 appful vaginal QHS #40 grams 06/26/21 cream lidocaine 5 % topical patch 1 patch topical QDAY #15 ea 07/03/21 solifenacin 5 mg tablet 5 mg PO QDAY #90 tabs 07/23/21 commode #1 ea 07/31/21 compr.stocking,knee,long,small #4 ea 07/31/21 (T.E.D. Knee [id number]) nystatin 100,000 unit/gram topical 1 applic topical BID #60 grams 08/15/21 powder pramipexole 1 mg tablet 4 mg PO QDAY #360 tabs 09/05/21 estradiol 10 mcg vaginal tablet 10 mcg vaginal QDAY #18 tabs 10/18/21 hydrocodone 5 mg-acetaminophen 325 1 tab PO QID PRN pain #56 tabs 11/02/21 mg tablet tizanidine 4 mg tablet 4 mg PO BID #180 tabs 01/14/22 fosfomycin tromethamine 3 gram 3 g PO ONCE #1 ea 03/16/22 oral packet doxepin 25 mg capsule 25 mg PO QHS #30 caps 06/27/22 buspirone 15 mg tablet 15 mg PO TID #90 tabs 07/22/22 duloxetine 60 mg capsule,delayed See Rx Instructions .Route 07/22/22 release .COMPLEX 30 days #60 caps Allergies Allergy/AdvReac Type Severity Reaction Status Date / Time Carbapenems Allergy Severe Eye Verified 07/22/22 10:00 swelling cefazolin [From Ancef] Allergy Severe Anaphylaxis Verified 08/01/22 15:00 ceftriaxone [From Rocephin] Allergy Severe Anaphylaxis Verified 08/01/22 15:00 Diclofenac [From Voltaren] Allergy Severe Anaphylaxis Verified 08/01/22 15:00 fluconazole Allergy Severe Anaphylaxis Verified 08/01/22 15:00 Cephalosporins Allergy Mild Hives Verified 08/01/22 15:00 ciprofloxacin [From Cipro] Allergy Mild Hives Verified 07/22/22 10:00 levofloxacin [From Levaquin] Allergy Mild Hives Verified 07/22/22 10:00 methocarbamol [From Robaxin] Allergy Mild Hives Verified 07/22/22 10:00 nitrofurantoin Allergy Mild Hives Verified 07/22/22 10:00 [From Macrobid] Sulfa (Sulfonamide Allergy Mild Hives Verified 07/22/22 10:00 Antibiotics) dexamethasone Allergy Unknown Unknown Verified 07/22/22 10:00 morphine Allergy Unknown Unknown Verified 07/22/22 10:00 acetaminophen Allergy Unknown Verified 07/22/22 10:00 [From Excedrin Migraine] aspirin Allergy Unknown Verified 07/22/22 10:00 [From Excedrin Migraine] caffeine Allergy Unknown Verified 07/22/22 10:00 [From Excedrin Migraine] mupirocin Allergy Rash Verified 07/22/22 10:00 Penicillins Allergy Anaphylaxis Verified 07/22/22 10:00 codeine AdvReac Mild Agitated Verified 07/22/22 10:00 meperidine [From Demerol] AdvReac Mild Vomiting Verified 07/22/22 10:00 cephalexin [From Keflex] AdvReac Nausea Verified 07/22/22 10:00 Review of Systems ROS ROS Narrative: Narrative: All systems ED: reviewed and negative except as stated. [facility] Narrative Patient History Narrative: Narrative: Medical/Surgical/Family History All Active Problems (Updated 08/01/22 @ 15:59 by Savita Mesa PA-C) Type 2 diabetes mellitus with diabetic neuropathy (Chronic) Hypertension (Chronic) Focal seizure (Chronic) Angioedema (Chronic) Seizure disorder (Chronic) Parkinson disease (Chronic) Morbid obesity (Chronic) Edema of both ankles (Chronic) snf (current) use of insulin (Chronic) Hypertension, benign (Chronic) MIGUEL A (obstructive sleep apnea) (Chronic) Diabetes mellitus type 2, uncontrolled (Chronic) Insomnia (Chronic) Hypersomnia (Chronic) Allergy status to other antibiotic agents status (Chronic) Other allergy, initial encounter (Chronic) Contact allergic reaction (Chronic) Muscle spasm of back (Chronic) Type 2 diabetes mellitus with unspecified complications (Chronic) Unspecified lump in the left breast, lower inner quadrant (Chronic) History of kidney stones (Chronic) Adverse effect of other systemic antibiotics, initial encounter (Chronic) Panic disorder (Chronic) Extrapyramidal syndrome (Chronic) Benign head tremor (Chronic) Hirsutism (Chronic) Diastolic dysfunction (Chronic) Muscle spasms of neck (Chronic) Diabetic autonomic neuropathy (Chronic) Syncope (Chronic) Morbid (severe) obesity due to excess calories (Chronic) Tremor, essential (Chronic) Hypothyroidism (Chronic) Elevated cortisol level (Chronic) Essential (primary) hypertension (Chronic) Abscess of left Bartholin's gland (Chronic) Shoulder pain, left (Chronic) Kidney stones (Chronic) Gout (Chronic) Eczema of both hands (Chronic) Multiple nevi (Chronic) Venous insufficiency of lower extremity (Chronic) Rotator cuff syndrome of left shoulder (Chronic) GERD (gastroesophageal reflux disease) (Chronic) Hyperlipidemia (Chronic) Menopausal syndrome (Chronic) Masses of both breasts (Chronic) UTI (urinary tract infection) (Chronic) Microscopic hematuria (Chronic) Chronic pain (Chronic) Radiculopathy, cervical region (Chronic) Spinal stenosis, lumbar region with neurogenic claudication (Chronic) Spondylosis without myelopathy or radiculopathy, cervical region (Chronic) Cervicalgia (Chronic) Radiculopathy, lumbar region (Chronic) Type 2 diabetes mellitus with peripheral neuropathy (Chronic) DJD (degenerative joint disease) (Chronic) Obesity, unspecified (Chronic) Asthma (Chronic) History of chest pain (Chronic) Palpitations (Chronic) Headache (Chronic) Drug eruption (Chronic) UTI (urinary tract infection) (Chronic) Allergic reaction (Chronic) Steroid-induced hyperglycemia (Chronic) Rash (Chronic) Allergic reaction caused by a drug (Chronic) Acute hyperglycemia (Chronic) Acute dehydration (Chronic) Hypokalemia (Chronic) Edema (Chronic) Intertrigo (Chronic) Atrophic vaginitis (Chronic) Urge incontinence (Chronic) Recurrent UTI (Chronic) Candidal vaginitis (Chronic) Nausea (Chronic) Episode of generalized weakness (Chronic) Carpal tunnel syndrome, unspecified upper limb (Chronic) Primary osteoarthritis (Chronic) Primary osteoarthritis, unspecified hand (Chronic) Bilateral hand pain (Chronic) Bilateral hand swelling (Chronic) Bilateral hand numbness (Chronic) Weight loss, intentional (Chronic) Arthritis (Chronic) Difficulty swallowing (Chronic) SOB (shortness of breath) (Chronic) Joint stiffness (Chronic) Joint pain (Chronic) Agitation (Chronic) Excessive thirst (Chronic) Trigger finger (Chronic) Daytime hypersomnia (Chronic) UTI (urinary tract infection) (Acute) Abdominal pain (Acute) Chronic low back pain (Chronic) Nasal turbinate hypertrophy (Chronic) Radiculopathy, lumbosacral region (Acute) Flank pain (Acute) Low back pain (Acute) Cauda equina syndrome (Acute) Hyperglycemia due to diabetes mellitus (Acute) CKD (chronic kidney disease) (Acute) Acute dehydration (Acute) Orthostatic dizziness (Acute) Acute hypokalemia (Acute) CASSIDY (acute kidney injury) (Acute) Major depressive disorder, recurrent (Chronic) Dehydration (Acute) Nausea (Acute) Diabetes mellitus with hyperglycemia (Acute) Ketosis due to secondary diabetes (Acute) Acute hyperglycemia (Acute) Malaise (Acute) Poorly controlled type 2 diabetes mellitus (Acute) Acute hyperglycemia (Acute) Morbid obesity with BMI of 50.0-59.9, adult (Acute) UTI (urinary tract infection) (Acute) Uncontrolled diabetes mellitus (Acute) Weakness (Acute) Acute hyperglycemia (Acute) Fall (Acute) Contusion of head (Acute) Concussion without loss of consciousness (Acute) Acute dehydration (Acute) Orthostatic dizziness (Acute) CASSIDY (acute kidney injury) (Acute) Acute hypokalemia (Acute) UTI (urinary tract infection) (Acute) Sinusitis (Acute) Bilateral leg edema (Acute) Hyperglycemia due to type 2 diabetes mellitus (Acute) Hyperosmolar hyperglycemic state (HHS) (Acute) Acute hypokalemia (Acute) Medical History Abscess of left Bartholin's gland Acute dehydration Acute hyperglycemia Acute pain in female pelvis Acute UTI Adverse effect of other systemic antibiotics, initial encounter Agitation Allergic reaction caused by a drug Allergy status to other antibiotic agents status Angioedema Arthritis Asthma Atrophic vaginitis restart topical estrogen Atypical chest pain Back pain Bacterial vaginosis Benign head tremor Bilateral hand numbness Bilateral hand pain Bilateral hand swelling Bronchitis Bronchospasm Candidal vaginitis Carpal tunnel syndrome, unspecified upper limb Cervicalgia Chest pain Chronic low back pain Chronic pain Constipation Contact allergic reaction Daytime hypersomnia Diabetes mellitus type 2, uncontrolled Diabetic autonomic neuropathy Diastolic dysfunction Difficulty swallowing DJD (degenerative joint disease) Drug eruption Eczema of both hands Edema of both ankles Elevated cortisol level Episode of generalized weakness Escherichia coli urinary tract infection Essential (primary) hypertension Excessive thirst Extrapyramidal syndrome Focal seizure GERD (gastroesophageal reflux disease) Gout Headache Hirsutism Hyperglycemia due to type 2 diabetes mellitus Hyperlipidemia Hypersomnia Hypoglycemia due to insulin Hypokalemia Hypothyroidism Insomnia Intertrigo Supriya cream is effective, she will restart this Joint pain Joint stiffness Kidney stones Lactic 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 CT from last year negative for malignancy or renal stone Refer to urology for cystoscopy Morbid (severe) obesity due to excess calories Morbid obesity Multiple nevi Muscle rigidity Muscle spasm of back Lumbosacral Region Muscle spasms of neck Nasal turbinate hypertrophy Nausea MIGUEL A (obstructive sleep apnea) 09/2018-[facility]I 16 Other allergy, initial encounter Palpitations Panic disorder Parkinson disease Pneumonia Primary osteoarthritis Primary osteoarthritis, unspecified hand Radiculopathy, cervical region Radiculopathy, lumbar region Radiculopathy, lumbosacral region Rash Recurrent UTI asymptomatic today Rotator cuff syndrome of left shoulder Seizure disorder Shoulder pain, left SOB (shortness of breath) Spinal stenosis, lumbar region with neurogenic claudication Spondylosis without myelopathy or radiculopathy, cervical region Steroid-induced hyperglycemia Syncope and collapse Tremor, essential Trigger finger Type 2 diabetes mellitus with diabetic neuropathy Type 2 diabetes mellitus with peripheral neuropathy Type 2 diabetes mellitus with unspecified complications Unspecified lump in the left breast, lower inner quadrant Urge incontinence improved on Vesicare Urticaria UTI (urinary tract infection) Frequent symptoms with negative cultures Vaginal candidiasis Venous insufficiency of lower extremity Weight loss, intentional Surgical History History of bilateral cataract extraction (~2017) History of cardiac catheterization (~2006) History of carpal tunnel surgery History of cholecystectomy (~2005) History of colonoscopy (~2015) Adenomatous polyp resection History of endometrial ablation (~2012) History of hysterectomy 11/11/2020-complete History of kidney surgery (~1992) Kidney stone. 1990 History of laparoscopic cholecystectomy (~2005) History of left breast biopsy Benign findings History of surgery LESI #1 L3-4 w/sed 09/27/2019 LESI #1 L3-4 w/o sed 02/16/2018 Family History Mother , 85 Natural Cause Stroke Congestive heart failure Diabetes mellitus Hypertension Osteoarthritis Father , Age 51 - Industrial Accident Hypertension Heart disease Sister , age 59 Cancer Asthma Diabetes mellitus Heart disease Hypertension Congestive heart failure Drug abuse Brother Cancer Oldest bro - breast cancer other brother Lymph cancer Diabetes mellitus Heart disease Hypertension Psoriasis Rheumatic fever Congestive heart failure Other Breast cancer Lymphoma Small cell lung cancer Social History Smoking Status: Never smoker Alcohol Intake Frequency: does not drink Substance Use: does not use Exam Narrative Narrative: General: AOx3, NAD, nontoxic appearing. Somnolent, but arousable and following commands HEENT: PERRL, EOMI, normocephalic. Dry mucous membranes. Normal facies and normal dentition. Respiratory: Lungs clear to auscultation bilaterally. No respiratory distress. Unlabored breathing. Heart: Regular rate and rhythm, no murmurs/clicks/rubs. Abdomen: Morbidly obese, non-tender, Non distended Extremities: Warm and well perfused. Bilateral lower extremity edema right greater than left 2+ pitting. DP 2+ bilaterally. Chronic bilateral venous stasis. Patient has a dressing over the right great toe and I do not remove this as it was just placed. There appears to be no associated erythema or swelling. No other open lesions or draining wounds. Neuro: No focal deficits. Cranial nerves II-XII grossly normal. Skin: Warm dry, no rashes or lesions, no cyanosis. Psych: Normal mood and affect Heme/Lymph: No abnormal bruising General Limitations: no limitations Course Course Course Narrative: 57-year-old type II diabetic female presents with altered mental status and hyperglycemia Reevaluation(s) Reevaluation #1: We will work the patient up for HHS versus DKA Obtain beta hydroxybutyrate levels VBG, CMP Initiate IV fluids and give 10 units IV insulin bolus x1 dose Reevaluation #2: VBG with calculated anion gap of 5, CMP shows a normal anion gap. pH is 7.8 with lactic acid of 2.8---> give additional 1 L of normal saline and recheck lactic acid Beta hydroxybutyrate is within normal limits Corrected sodium is 135 Reevaluation #3: Lactic acid is normalized. pH now 7.43 Blood sugars are downtrending with [id number] 390--> patient is asking to eat. We will allow this and give additional 10 units of IV insulin x1 dose. Correct her potassium, patient does not tolerate IVs so we will give 80 mEq oral x1 dose Additional Reevaluation(s): The patient's mentation has improved dramatically. She is now at her baseline. She is able to tell me her medications and dosages. Repeat blood sugar after 10 units of IV insulin repeated dosing is still at 390. We will give an additional 10 units and monitor for the next few hours. If she is markedly improving her blood sugars and continues to be asymptomatic then we will likely discharge her home. Vital Signs Vital signs: Vital Signs Temperature 97.0 F 08/01/22 10:03 Pulse Rate 81 08/01/22 10:03 Respiratory Rate 18 08/01/22 10:03 Blood Pressure 123/73 08/01/22 10:03 Pulse Oximetry (%) 95 08/01/22 10:03 Oxygen Delivery Method Room Air 08/01/22 10:03 Temperature 97.0 F 08/01/22 10:03 Pulse Rate 74 08/01/22 15:46 Respiratory Rate 12 08/01/22 15:46 Blood Pressure 118/66 08/01/22 15:46 Pulse Oximetry (%) 94 08/01/22 15:46 Oxygen Delivery Method Room Air 08/01/22 10:28 [facility] MDM Narrative Medical decision making narrative: Elevated blood sugars Altered mental status HHS Hypokalemia Patient was given IV fluid replacement and a [facility] Her mentation has cleared and her blood sugars are appropriately trending down but still remains elevated at 340. Lactic acid has normalized. Patient's potassium is currently being replaced we will hold off on additional insulin until these levels normalize. I have ordered another liter of normal saline with 20meq of potassium. The patient is at high risk for worsening HHS if she is to discharge home. I feel she is appropriate for inpatient admission and hospitalist management. I spoke with Dr. Neil, and he is accepted the patient for admission. He requested that I order blood cultures and a CBC and these are currently pending. Lab Data 08/01/22 10:51 Labs: Lab Results 08/01/22 08/01/22 08/01/22 Range/Units 10:25 10:26 10:51 POC Hct 45.0 (36-48) POC VBG pH 7.48 H (7.32-7.42) POC VBG pCO2 at Temp 51.4 H (41-51) POC VBG pO2 44 H (25-40) POC VBG HCO3 38.0 H (24-28) POC VBG Total CO2 40.0 H (25-29) POC Venous O2 Sat 81.0 H (40-70) POC VBG Base Excess 14.0 H* (-2-2) VBG Lactic Acid 2.8 H (0.5-2) POC Sodium 128 L (133-145) Sodium 126 L (133-145) mmol/L POC Potassium 3.1 L (3.3-5.1) Potassium 3.0 L (3.3-5.1) mmol/L POC Chloride 82 L (96-108) Chloride 82 L (96-108) mmol/L Carbon Dioxide 31 H (22-30) mmol/L POC Total CO2 34.0 H (22-30) Anion Gap 13.0 (8.0-16.0) POC BUN 44 H (6-20) BUN 39 H (6-20) mg/dL Creatinine 0.9 (0.6-1.1) mg/dL POC Creatinine 1.0 (0.6-1.2) GFR Calculation 70 Glucose 527 H* (70-105) mg/dL POC Glucose 527 H* (70-105) Calcium 9.0 (8.6-10.4) mg/dL POC WB Ioniz Calcium 1.04 L (1.16-1.32) Total Bilirubin 0.6 (0.1-1.0) mg/dL AST 18 (<32) U/L ALT 19 (<40) U/L Alkaline Phosphatase 178 H (39-117) U/L Total Protein 7.4 (5.9-8.4) gm/dL Albumin 4.0 (3.2-5.2) gm/dL Globulin 3.4 (2.2-3.7) gm/dL Albumin/Globulin Ratio 1.2 (1.0-2.3) Beta-Hydroxybutyrate 0.18 (<0.27) mmol/L 08/01/22 08/01/22 Range/Units 12:37 13:40 POC Hct (36-48) POC VBG pH 7.43 H (7.32-7.42) POC VBG pCO2 at Temp 52.6 H (41-51) POC VBG pO2 35 (25-40) POC VBG HCO3 34.7 H (24-28) POC VBG Total CO2 36.0 H (25-29) POC Venous O2 Sat 67.0 (40-70) POC VBG Base Excess 10.0 H* (-2-2) VBG Lactic Acid 2.0 2.3 H (0.5-2) POC Sodium (133-145) Sodium (133-145) mmol/L POC Potassium (3.3-5.1) Potassium (3.3-5.1) mmol/L POC Chloride (96-108) Chloride (96-108) mmol/L Carbon Dioxide (22-30) mmol/L POC Total CO2 (22-30) Anion Gap (8.0-16.0) POC BUN (6-20) BUN (6-20) mg/dL Creatinine (0.6-1.1) mg/dL POC Creatinine (0.6-1.2) GFR Calculation Glucose (70-105) mg/dL POC Glucose (70-105) Calcium (8.6-10.4) mg/dL POC WB Ioniz Calcium (1.16-1.32) Total Bilirubin (0.1-1.0) mg/dL AST (<32) U/L ALT (<40) U/L Alkaline Phosphatase (39-117) U/L Total Protein (5.9-8.4) gm/dL Albumin (3.2-5.2) gm/dL Globulin (2.2-3.7) gm/dL Albumin/Globulin Ratio (1.0-2.3) Beta-Hydroxybutyrate (<0.27) mmol/L Discharge Plan Patient/Caregiver Discharge Instructions Pt seen by BILLIARD PARLOR MANAGER/PA only: Yes Clinical Impression: Hyperosmolar hyperglycemic state (HHS), Acute hypokalemia Patient Disposition: Xfer As Inpt ([facility]) Follow up with: Radha Baez ARNP [Primary Care Provider] - Prescriptions: No Action duloxetine 60 mg capsule,delayed release(DR/EC) See Rx Instructions .ROUTE .COMPLEX 30 Days Qty: 60 2RF Rx Instructions: TAKE ONE CAPSULE BY MOUTH IN AM + ONE CAPSULE BY MOUTH AT NOON buspirone 15 mg tablet 15 mg PO TID Qty: 90 3RF Unifine PNTP MIS 8MM [id number] Misc NOTAPPLIC Rx Instructions: Use to inject Victoza clindamycin phosphate 2 % cream 1 appful vaginal QHS Qty: 40 0RF Rx Instructions: for 3 days solifenacin 5 mg tablet 5 mg PO QDAY Qty: 90 3RF (DME) T.E.D. Knee [id number] Misc See Rx Instructions .Route Qty: 4 0RF Rx Instructions: As directed (DME) commode extra large See Rx Instructions .Route .MEDSUPPLY Qty: 1 0RF Rx Instructions: As directed nystatin 100,000 unit/gram powder 1 applic topical BID Qty: 60 1RF pramipexole 1 mg tablet 4 mg PO QDAY Qty: 360 2RF hydrocodone-acetaminophen 5-325 mg tablet 1 tab PO QID PRN (Reason: pain) Qty: 56 0RF Rx Instructions: Must last 14 days. tizanidine 4 mg tablet 4 mg PO BID Qty: 180 1RF doxepin 25 mg capsule 25 mg PO QHS Qty: 30 2RF mecobalamin (vitamin B12) 1,000 mcg PO QDAY multivitamin [Multiple Vitamins] Tablet 1 tab PO QDAY liraglutide 1.8 mg subcut QAM cholecalciferol (vitamin D3) 25 mcg (1,000 unit) capsule 25 mcg PO BID metolazone 2.5 mg tablet 2.5 mg PO .2xw aspirin 81 mg tablet,delayed release (DR/EC) 81 mg PO QAM (DME) pen needle, diabetic [BD Ultra-Fine Short Pen Needle] 31 gauge x 5/16" needle See Rx Instructions subcut TID Qty: 1200 Rx Instructions: As directed levothyroxine 75 mcg tablet 75 mcg PO QDAY ferrous sulfate 325 mg (65 mg iron) tablet 325 mg PO QDAY spironolactone 100 mg tablet 100 mg PO QAM torsemide 20 mg tablet 20 mg PO QAM levothyroxine 200 mcg tablet 200 mcg PO QDAY lansoprazole 30 mg capsule,delayed release(DR/EC) 30 mg PO BID lidocaine 5 % adhesive patch,medicated 1 patch topical QDAY Qty: 15 0RF Rx Instructions: leave on most painful area for up to 12 hrs propranolol 120 mg capsule,extended release 24 hr 120 mg PO QDAY Ozempic 1 mg/dose (4 mg/3 mL) pen injector subcut Humulin R U-500 (Conc) Kwikpen 500 unit/mL (3 mL) insulin pen subcut Rx Instructions: 125 units subq AM and Noon albuterol sulfate 90 mcg/actuation HFA aerosol inhaler 1 puff inhalation Q4H PRN (Reason: shortness of breath or wheezing) Humalog KwikPen Insulin 200 unit/mL (3 mL) insulin pen 1 unit subcut QACBREAK Patient Comments: Insulin pump, carb ration 1:1 fosfomycin tromethamine 3 gram packet 3 g PO ONCE Qty: 1 0RF Rx Instructions: Take 3 g dose as a single dose now for UTI. insulin degludec 25 unit auto-injector 25 units subcut (via wearable injectr) DAILY estradiol 10 mcg tablet 10 mcg vaginal QDAY Qty: 18 3RF Rx Instructions: for 14 days then twice a week there after
[2022-08-01] MEDS ORDERED: INSULIN REGULAR, HUMAN 1 UNIT/0.01 ML UNIT IV ONE ×4 (10:47→15:26)
[2022-08-01 11:33] LABS: Beta Hydroxybutyrate 0.18 mmol/L (<0.27)
[2022-08-01 11:48] LABS: ALT/SGPT 19 U/L (<40); AST/SGOT 18 U/L (<32); Albumin/Globulin Ratio 1.2 (1.0-2.3); Alkaline Phosphatase 178 U/L (39-117); Bilirubin,Total 0.6 mg/dL (0.1-1.0); Blood Urea Nitrogen 39 mg/dL (6-20); Carbon Dioxide 31 mmol/L (22-30); Chloride 82 mmol/L (96-108); Globulin 3.4 gm/dL (2.2-3.7); Glomerular Filtration Rate 70; Glucose 527 mg/dL (70-105)
[2022-08-01] MEDS ORDERED: POTASSIUM CHLORIDE 40 MEQ in DEXTROSE 5% IN WATER 500 ML IV ONE (14:53)
[2022-08-01] MEDS ORDERED: POTASSIUM CHLORIDE 20 MEQ TABLET PO ONE ×2 (15:36→15:50)
[2022-08-01] MEDS ORDERED: POTASSIUM CHLORIDE 20 MEQ PACKET PO ONE (15:38)
[2022-08-01] MEDS ORDERED: NACL 0.9% W/KCL 20MEQ 1,000 ML IV SCH (16:00)
[2022-08-01 16:34] LABS: Basophils # (Auto) 0.04 K/mcL (0.00-0.30); Basophils % (Auto) 0.5 % (0.0-2.0); Eosinophils # (Auto) 0.13 K/mcL (0.00-0.70); Eosinophils % (Auto) 1.5 % (0.0-7.0); Hematocrit 39.6 % (34.1-44.9); Hemoglobin 13.7 g/dL (11.2-15.7); Lymphocytes # (Auto) 2.39 K/mcL (1.50-4.80); Lymphocytes % (Auto) 28.3 % (15.5-49.0); Mean Cell Volume 85.5 fL (80.0-100.0); Mean Corpuscular HGB Conc 34.6 g/dL (31.0-36.0); Mean Platelet Volume 9.5 fL (8.8-12.5); Monocytes # (Auto) 0.89 K/mcL (0.10-0.90); Monocytes % (Auto) 10.5 % (1.0-12.0); Neutrophils % (Auto) 58.8 % (38.0-78.0); Platelet Count 189 K/mcL (140-440); RBC 4.63 M/mcL (3.59-5.38); Red Cell Distribution Width 12.6 % (11.5-14.5); WBC 8.4 K/mcL (4.5-11.0)
--- NOTE | 2022-08-01 17:14 | Internal Med History&Physical ---
HPI History of Present Illness Patient information: Note initiated : 08/01/22 at 5:06 pm Service Date, if different from initiated Date: [] Patient: Maggie Mccray 57 y/o F admitted on for High Blood Glucose. Chief Complaint: [] History of present illness: Ms. Mccray is a 57 year old Female with a history of multiple comorbidities including type 2 diabetes mellitus, hypertension, heart failure with preserved ejection fraction, hypothyroidism, parkinsonism, obstructive sleep apnea, obesity, nonhealing right toe wound who was told to go to the ED from the wound care clinic for confusion. In the emergency department, the patient was found to have a blood sugar of greater than 500. There is no evidence of acidosis, no signs of systemic infection, or other acute process. The patient was started on IV fluid and IV insulin to correct hyperglycemia however that was limited by hypokalemia. Patient was then given IV and oral potassium replacement. Beta hydroxybutyrate was normal. Serum osmolality was elevated. Patient has hyperos molar hyperglycemic syndrome, the cause is not known. The patient's mentation improved in the emergency department. Hospital medicine was consulted to admit the patient for further management. Upon examination, the patient does have a chronic appearing wound on her right #1 toe that does not appear infected. Patient does have some bilateral lower extremity pitting edema. She is on room air, alert and oriented and in no apparent distress. She said that she was recently transition from torsemide to Lasix which she has been taking 40 mg in the morning. In the ED, the patient said that she did not remember waking up this morning and vaguely remembers going to the wound care clinic. Review of systems Constitutional: no fever, fatigue, or weight loss Eyes: no vision changes or pain Cardiovascular: no chest pain, no palpitations Respiratory: no cough or dyspnea Gastrointestinal: no abdominal pain, no nausea, vomiting, or diarrhea Genitourinary: no dysuria or difficulty voiding Musculoskeletal: Bilateral pitting edema, no arthralgia or myalgia Integumentary: Wound on right #1 toe Neurological: no focal weakness or numbness Psychiatric: no anxiety or depression Physical exam Head: Atraumatic, normal inspection. Eyes: normal appearance, no scleral icterus. Neck: full ROM Respiratory: no respiratory distress. Cardiovascular: normal rate and rhythm, S1, S2. GI/Abdominal: soft, nontender, no guarding. Extremities: full range of motion, nontender. Neurological: CN II-XII intact, intact motor, intact sensation. Psychiatric: normal mood. Skin: Chronic appearing wound on right toe does not appear infected. PFSH PFSH All Active Problems (Updated 08/01/22 @ 15:59 by Savita Mesa PA-C) Type 2 diabetes mellitus with diabetic neuropathy (Chronic) Hypertension (Chronic) Focal seizure (Chronic) Angioedema (Chronic) Seizure disorder (Chronic) Parkinson disease (Chronic) Morbid obesity (Chronic) Edema of both ankles (Chronic) manager intermediate (current) use of insulin (Chronic) Hypertension, benign (Chronic) MIGUEL A (obstructive sleep apnea) (Chronic) Diabetes mellitus type 2, uncontrolled (Chronic) Insomnia (Chronic) Hypersomnia (Chronic) Allergy status to other antibiotic agents status (Chronic) Other allergy, initial encounter (Chronic) Contact allergic reaction (Chronic) Muscle spasm of back (Chronic) Type 2 diabetes mellitus with unspecified complications (Chronic) Unspecified lump in the left breast, lower inner quadrant (Chronic) History of kidney stones (Chronic) Adverse effect of other systemic antibiotics, initial encounter (Chronic) Panic disorder (Chronic) Extrapyramidal syndrome (Chronic) Benign head tremor (Chronic) Hirsutism (Chronic) Diastolic dysfunction (Chronic) Muscle spasms of neck (Chronic) Diabetic autonomic neuropathy (Chronic) Syncope (Chronic) Morbid (severe) obesity due to excess calories (Chronic) Tremor, essential (Chronic) Hypothyroidism (Chronic) Elevated cortisol level (Chronic) Essential (primary) hypertension (Chronic) Abscess of left Bartholin's gland (Chronic) Shoulder pain, left (Chronic) Kidney stones (Chronic) Gout (Chronic) Eczema of both hands (Chronic) Multiple nevi (Chronic) Venous insufficiency of lower extremity (Chronic) Rotator cuff syndrome of left shoulder (Chronic) GERD (gastroesophageal reflux disease) (Chronic) Hyperlipidemia (Chronic) Menopausal syndrome (Chronic) Masses of both breasts (Chronic) UTI (urinary tract infection) (Chronic) Microscopic hematuria (Chronic) Chronic pain (Chronic) Radiculopathy, cervical region (Chronic) Spinal stenosis, lumbar region with neurogenic claudication (Chronic) Spondylosis without myelopathy or radiculopathy, cervical region (Chronic) Cervicalgia (Chronic) Radiculopathy, lumbar region (Chronic) Type 2 diabetes mellitus with peripheral neuropathy (Chronic) DJD (degenerative joint disease) (Chronic) Obesity, unspecified (Chronic) Asthma (Chronic) History of chest pain (Chronic) Palpitations (Chronic) Headache (Chronic) Drug eruption (Chronic) UTI (urinary tract infection) (Chronic) Allergic reaction (Chronic) Steroid-induced hyperglycemia (Chronic) Rash (Chronic) Allergic reaction caused by a drug (Chronic) Acute hyperglycemia (Chronic) Acute dehydration (Chronic) Hypokalemia (Chronic) Edema (Chronic) Intertrigo (Chronic) Atrophic vaginitis (Chronic) Urge incontinence (Chronic) Recurrent UTI (Chronic) Candidal vaginitis (Chronic) Nausea (Chronic) Episode of generalized weakness (Chronic) Carpal tunnel syndrome, unspecified upper limb (Chronic) Primary osteoarthritis (Chronic) Primary osteoarthritis, unspecified hand (Chronic) Bilateral hand pain (Chronic) Bilateral hand swelling (Chronic) Bilateral hand numbness (Chronic) Weight loss, intentional (Chronic) Arthritis (Chronic) Difficulty swallowing (Chronic) SOB (shortness of breath) (Chronic) Joint stiffness (Chronic) Joint pain (Chronic) Agitation (Chronic) Excessive thirst (Chronic) Trigger finger (Chronic) Daytime hypersomnia (Chronic) UTI (urinary tract infection) (Acute) Abdominal pain (Acute) Chronic low back pain (Chronic) Nasal turbinate hypertrophy (Chronic) Radiculopathy, lumbosacral region (Acute) Flank pain (Acute) Low back pain (Acute) Cauda equina syndrome (Acute) Hyperglycemia due to diabetes mellitus (Acute) CKD (chronic kidney disease) (Acute) Acute dehydration (Acute) Orthostatic dizziness (Acute) Acute hypokalemia (Acute) CASSIDY (acute kidney injury) (Acute) Major depressive disorder, recurrent (Chronic) Dehydration (Acute) Nausea (Acute) Diabetes mellitus with hyperglycemia (Acute) Ketosis due to secondary diabetes (Acute) Acute hyperglycemia (Acute) Malaise (Acute) Poorly controlled type 2 diabetes mellitus (Acute) Acute hyperglycemia (Acute) Morbid obesity with BMI of 50.0-59.9, adult (Acute) UTI (urinary tract infection) (Acute) Uncontrolled diabetes mellitus (Acute) Weakness (Acute) Acute hyperglycemia (Acute) Fall (Acute) Contusion of head (Acute) Concussion without loss of consciousness (Acute) Acute dehydration (Acute) Orthostatic dizziness (Acute) CASSIDY (acute kidney injury) (Acute) Acute hypokalemia (Acute) UTI (urinary tract infection) (Acute) Sinusitis (Acute) Bilateral leg edema (Acute) Hyperglycemia due to type 2 diabetes mellitus (Acute) Hyperosmolar hyperglycemic state (HHS) (Acute) Acute hypokalemia (Acute) Medical History Abscess of left Bartholin's gland Acute dehydration Acute hyperglycemia Acute pain in female pelvis Acute UTI Adverse effect of other systemic antibiotics, initial encounter Agitation Allergic reaction caused by a drug Allergy status to other antibiotic agents status Angioedema Arthritis Asthma Atrophic vaginitis restart topical estrogen Atypical chest pain Back pain Bacterial vaginosis Benign head tremor Bilateral hand numbness Bilateral hand pain Bilateral hand swelling Bronchitis Bronchospasm Candidal vaginitis Carpal tunnel syndrome, unspecified upper limb Cervicalgia Chest pain Chronic low back pain Chronic pain Constipation Contact allergic reaction Daytime hypersomnia Diabetes mellitus type 2, uncontrolled Diabetic autonomic neuropathy Diastolic dysfunction Difficulty swallowing DJD (degenerative joint disease) Drug eruption Eczema of both hands Edema of both ankles Elevated cortisol level Episode of generalized weakness Escherichia coli urinary tract infection Essential (primary) hypertension Excessive thirst Extrapyramidal syndrome Focal seizure GERD (gastroesophageal reflux disease) Gout Headache Hirsutism Hyperglycemia due to type 2 diabetes mellitus Hyperlipidemia Hypersomnia Hypoglycemia due to insulin Hypokalemia Hypothyroidism Insomnia Intertrigo Supriya cream is effective, she will restart this Joint pain Joint stiffness Kidney stones Lactic acidosis manager intermediate (current) use of insulin Masses of both breasts Menopausal syndrome Microscopic hematuria Frequent. CT from last year negative for malignancy or renal stone Refer to urology for cystoscopy Morbid (severe) obesity due to excess calories Morbid obesity Multiple nevi Muscle rigidity Muscle spasm of back Lumbosacral Region Muscle spasms of neck Nasal turbinate hypertrophy Nausea MIGUEL A (obstructive sleep apnea) 09/2018-[facility] 16 Other allergy, initial encounter Palpitations Panic disorder Parkinson disease Pneumonia Primary osteoarthritis Primary osteoarthritis, unspecified hand Radiculopathy, cervical region Radiculopathy, lumbar region Radiculopathy, lumbosacral region Rash Recurrent UTI asymptomatic today Rotator cuff syndrome of left shoulder Seizure disorder Shoulder pain, left SOB (shortness of breath) Spinal stenosis, lumbar region with neurogenic claudication Spondylosis without myelopathy or radiculopathy, cervical region Steroid-induced hyperglycemia Syncope and collapse Tremor, essential Trigger finger Type 2 diabetes mellitus with diabetic neuropathy Type 2 diabetes mellitus with peripheral neuropathy Type 2 diabetes mellitus with unspecified complications Unspecified lump in the left breast, lower inner quadrant Urge incontinence improved on Vesicare Urticaria UTI (urinary tract infection) Frequent symptoms with negative cultures Vaginal candidiasis Venous insufficiency of lower extremity Weight loss, intentional Surgical History History of bilateral cataract extraction (~2017) History of cardiac catheterization (~2006) History of carpal tunnel surgery History of cholecystectomy (~2005) History of colonoscopy (~2015) Adenomatous polyp resection History of endometrial ablation (~2012) History of hysterectomy 11/11/2020-complete History of kidney surgery (~1992) Kidney stone. 1990 History of laparoscopic cholecystectomy (~2005) History of left breast biopsy Benign findings History of surgery LESI #1 L3-4 w/sed 09/27/2019 LESI #1 L3-4 w/o sed 02/16/2018 Family History Mother , 85 Natural Cause Stroke Congestive heart failure Diabetes mellitus Hypertension Osteoarthritis Father , Age 51 - Industrial Accident Hypertension Heart disease Sister , age 59 Cancer Asthma Diabetes mellitus Heart disease Hypertension Congestive heart failure Drug abuse Brother Cancer Oldest bro - breast cancer other brother Lymph cancer Diabetes mellitus Heart disease Hypertension Psoriasis Rheumatic fever Congestive heart failure Other Breast cancer Lymphoma Small cell lung cancer Social History caregiver/support person: Yes household members: spouse housing: apartment lives independently: Yes marital status: education level: college occupational status: disabled sexually active: No physical activity: none smoking status: Never smoker alcohol intake frequency: does not drink substance use type: does not use efrain/buddhism: Sikhism MEDS/ALLERGIES Home Medications and Allergies Home Medications Medication Instructions Recorded Confirmed Type Unifine PNTP MIS 8MM [id number] Misc Not Applicable 06/16/19 07/22/22 History liraglutide [Victoza 2-Shahbaz] 1.8 mg subcut QAM 08/16/20 07/22/22 History mecobalamin (vitamin B12) 1,000 mcg PO QDAY 08/16/20 08/01/22 History multivitamin (Multiple Vitamins 1 tab PO QDAY 08/16/20 07/22/22 History tablet) insulin lispro 200 unit/mL (3 mL) 1 unit subcut QACBREAK 01/24/21 07/22/22 History subcutaneous pen (Humalog KwikPen U-200 Insulin) cholecalciferol (vitamin D3) 25 25 mcg PO BID 04/18/21 08/01/22 History mcg (1,000 unit) capsule aspirin 81 mg tablet,delayed 81 mg PO QAM 06/06/21 08/01/22 History release ferrous sulfate 325 mg (65 mg 325 mg PO QDAY 06/06/21 08/01/22 History iron) tablet metolazone 2.5 mg tablet 2.5 mg PO .2xw 06/06/21 07/22/22 History pen needle, diabetic 31 gauge x #1,200 ea 06/06/21 07/22/22 History 5/16" (BD Ultra-Fine Short Pen Needle) spironolactone 100 mg tablet 100 mg PO QAM 06/06/21 07/22/22 History lansoprazole 30 mg capsule,delayed 30 mg PO BID 07/03/21 08/01/22 History release levothyroxine 200 mcg tablet 200 mcg PO QDAY 07/03/21 08/01/22 History lidocaine 5 % topical patch 1 patch topical QDAY #15 ea 07/03/21 08/01/22 Rx solifenacin 5 mg tablet 5 mg PO QDAY #90 tabs 07/23/21 07/22/22 Rx commode #1 ea 07/31/21 07/22/22 Rx compr.stocking,knee,long,small #4 ea 07/31/21 07/22/22 Rx (T.E.D. Knee Lgwwot-V-Ixqk [facility]) nystatin 100,000 unit/gram topical 1 applic topical BID #60 grams 08/15/21 07/22/22 Rx powder pramipexole 1 mg tablet 4 mg PO QDAY #360 tabs 09/05/21 07/22/22 Rx albuterol sulfate 90 mcg/actuation 1 puff inhalation Q4H PRN 09/17/21 08/01/22 History aerosol inhaler shortness of breath or wheezing insulin regular hum U-500 conc 500 unit subcut 10/04/21 07/22/22 History unit/mL(3 mL) subcut pen (Humulin R U-500 (Conc) Insulin Kwikpen) propranolol 120 mg capsule,24 120 mg PO QDAY 10/04/21 07/22/22 History hr,extended release semaglutide 1 mg/dose (4 mg/3 mL) mg subcut 10/04/21 07/22/22 History subcutaneous pen injector (Ozempic) tizanidine 4 mg tablet 4 mg PO BID #180 tabs 01/14/22 07/22/22 Rx torsemide 20 mg tablet 20 mg PO QAM 04/04/22 07/22/22 History doxepin 25 mg capsule 25 mg PO QHS #30 caps 06/27/22 08/01/22 Rx buspirone 15 mg tablet 15 mg PO TID #90 tabs 07/22/22 08/01/22 Rx duloxetine 60 mg capsule,delayed See Rx Instructions .Route 07/22/22 08/01/22 Rx release .COMPLEX 30 days #60 caps bumetanide 1 mg tablet 1 mg PO BID 08/01/22 08/01/22 History insulin degludec 25 units subcut (via wearable 08/01/22 08/01/22 History injectr) DAILY Allergies Allergy/AdvReac Type Severity Reaction Status Date / Time Carbapenems Allergy Severe Eye Verified 07/22/22 10:00 swelling cefazolin [From Ancef] Allergy Severe Anaphylaxis Verified 08/01/22 15:00 ceftriaxone [From Rocephin] Allergy Severe Anaphylaxis Verified 08/01/22 15:00 Diclofenac [From Voltaren] Allergy Severe Anaphylaxis Verified 08/01/22 15:00 fluconazole Allergy Severe Anaphylaxis Verified 08/01/22 15:00 Cephalosporins Allergy Mild Hives Verified 08/01/22 15:00 ciprofloxacin [From Cipro] Allergy Mild Hives Verified 07/22/22 10:00 levofloxacin [From Levaquin] Allergy Mild Hives Verified 07/22/22 10:00 methocarbamol [From Robaxin] Allergy Mild Hives Verified 07/22/22 10:00 nitrofurantoin Allergy Mild Hives Verified 07/22/22 10:00 [From Macrobid] Sulfa (Sulfonamide Allergy Mild Hives Verified 07/22/22 10:00 Antibiotics) dexamethasone Allergy Unknown Unknown Verified 07/22/22 10:00 morphine Allergy Unknown Unknown Verified 07/22/22 10:00 acetaminophen Allergy Unknown Verified 07/22/22 10:00 [From Excedrin Migraine] aspirin Allergy Unknown Verified 07/22/22 10:00 [From Excedrin Migraine] caffeine Allergy Unknown Verified 07/22/22 10:00 [From Excedrin Migraine] mupirocin Allergy Rash Verified 07/22/22 10:00 Penicillins Allergy Anaphylaxis Verified 07/22/22 10:00 codeine AdvReac Mild Agitated Verified 07/22/22 10:00 meperidine [From Demerol] AdvReac Mild Vomiting Verified 07/22/22 10:00 cephalexin [From Keflex] AdvReac Nausea Verified 07/22/22 10:00 EXAM Constitutional Vitals: Temp Pulse Resp BP Pulse Ox O2 Del Method 97.0 F 77 15 125/58 97 Room Air 08/01/22 10:03 08/01/22 16:33 08/01/22 16:33 08/01/22 16:33 08/01/22 16:33 08/01/22 10:28 DATA Data Completed and Pending Labs: Labs from last 24 hours 08/01/22 08/01/22 08/01/22 16:02 16:02 13:40 WBC 8.4 RBC 4.63 Hgb 13.7 Hct 39.6 POC Hct MCV 85.5 MCH 29.6 MCHC 34.6 RDW 12.6 Plt Count 189 MPV 9.5 Immature Gran % (Auto) 0.4 Neut % (Auto) 58.8 Lymph % (Auto) 28.3 [place] % (Auto) 10.5 Eos % (Auto) 1.5 Baso % (Auto) 0.5 Lymph # (Auto) 2.39 [place] # (Auto) 0.89 Eos # (Auto) 0.13 Baso # (Auto) 0.04 Immature Gran # 0.03 Absolute Neutrophils 4.96 POC VBG pH POC VBG pCO2 at Temp POC VBG pO2 POC VBG HCO3 POC VBG Total CO2 POC Venous O2 Sat POC VBG Base Excess VBG Lactic Acid 2.5 H 2.3 H POC Sodium Sodium POC Potassium Potassium POC Chloride Chloride Carbon Dioxide POC Total CO2 Anion Gap POC BUN BUN Creatinine POC Creatinine GFR Calculation Glucose POC Glucose Osmolality Calcium POC WB Ioniz Calcium Total Bilirubin AST ALT Alkaline Phosphatase C-Reactive Protein Total Protein Albumin Globulin Albumin/Globulin Ratio Beta-Hydroxybutyrate 08/01/22 08/01/22 08/01/22 12:37 10:51 10:51 WBC RBC Hgb Hct POC Hct MCV MCH MCHC RDW Plt Count MPV Immature Gran % (Auto) Neut % (Auto) Lymph % (Auto) [place] % (Auto) Eos % (Auto) Baso % (Auto) Lymph # (Auto) [place] # (Auto) Eos # (Auto) Baso # (Auto) Immature Gran # Absolute Neutrophils POC VBG pH 7.43 H POC VBG pCO2 at Temp 52.6 H POC VBG pO2 35 POC VBG HCO3 34.7 H POC VBG Total CO2 36.0 H POC Venous O2 Sat 67.0 POC VBG Base Excess 10.0 H* VBG Lactic Acid 2.0 POC Sodium Sodium 126 L POC Potassium Potassium 3.0 L POC Chloride Chloride 82 L Carbon Dioxide 31 H POC Total CO2 Anion Gap 13.0 POC BUN BUN 39 H Creatinine 0.9 POC Creatinine GFR Calculation 70 Glucose 527 H* POC Glucose Osmolality 307 H Calcium 9.0 POC WB Ioniz Calcium Total Bilirubin 0.6 AST 18 ALT 19 Alkaline Phosphatase 178 H C-Reactive Protein 0.90 H Total Protein 7.4 Albumin 4.0 Globulin 3.4 Albumin/Globulin Ratio 1.2 Beta-Hydroxybutyrate 0.18 08/01/22 08/01/22 10:26 10:25 WBC RBC Hgb Hct POC Hct 45.0 MCV MCH MCHC RDW Plt Count MPV Immature Gran % (Auto) Neut % (Auto) Lymph % (Auto) [place] % (Auto) Eos % (Auto) Baso % (Auto) Lymph # (Auto) [place] # (Auto) Eos # (Auto) Baso # (Auto) Immature Gran # Absolute Neutrophils POC VBG pH 7.48 H POC VBG pCO2 at Temp 51.4 H POC VBG pO2 44 H POC VBG HCO3 38.0 H POC VBG Total CO2 40.0 H POC Venous O2 Sat 81.0 H POC VBG Base Excess 14.0 H* VBG Lactic Acid 2.8 H POC Sodium 128 L Sodium POC Potassium 3.1 L Potassium POC Chloride 82 L Chloride Carbon Dioxide POC Total CO2 34.0 H Anion Gap POC BUN 44 H BUN Creatinine POC Creatinine 1.0 GFR Calculation Glucose POC Glucose 527 H* Osmolality Calcium POC WB Ioniz Calcium 1.04 L Total Bilirubin AST ALT Alkaline Phosphatase C-Reactive Protein Total Protein Albumin Globulin Albumin/Globulin Ratio Beta-Hydroxybutyrate A/P Narrative A/P Narrative: Assessment: 57 year old Female with a history of multiple comorbidities including type 2 diabetes mellitus, hypertension, heart failure with preserved ejection fraction, hypothyroidism, parkinsonism, obstructive sleep apnea, obesity, nonhealing right toe wound admitted for hyperosmolar hyperglycemic syndrome. #Hyperosmolar hyperglycemic syndrome #Pseudohyponatremia secondary to hyperglycemia #Type 2 diabetes mellitus #Hypertension #Heart failure with preserved ejection fraction #Hypothyroidism #Parkinsonism #Obstructive sleep apnea #Nonhealing wound on right #1 toe #Obesity BMI 47 Plan -Lantus 25 units at bedtime, Humalog 20 units AC at bedtime, correction Humalog SSI high-dose for now. -IV fluid, monitor volume status. -Monitor potassium closely, replace as needed. -Check magnesium, replace as needed. -If blood sugars do not improve will transition to a insulin infusion. -Check hemoglobin A1c. -Monitor lactic acid until downtrending. -Check CRP. -Blood cultures x2. -Home medication reconciliation. -Consistent carbohydrate diet. -DVT prophylaxis: Lovenox. Time Spent With Patient Time: Total time spent is greater than 50% in coordination of care (as documented) at patient's floor/unit and/or counseling patient:
[2022-08-01] MEDS ORDERED: DEXTROSE 31 GM ORAL.SUSP PO PRN (18:05)
[2022-08-01] MEDS ORDERED: LACTULOSE 20 GM/30 ML ORAL.SOL PO PRN (18:05)
[2022-08-01] MEDS ORDERED: SENNOSIDES 1 TABLET PO PRN (18:05)
[2022-08-01] MEDS ORDERED: ONDANSETRON 4 MG/2 ML VIAL IV PRN (18:05)
[2022-08-01] MEDS ORDERED: DEXTROSE 50% 50 ML VIAL IV PRN (18:05)
[2022-08-01 19:22] LABS: ALT/SGPT 18 U/L (<40); AST/SGOT 15 U/L (<32); Albumin 3.8 gm/dL (3.2-5.2); Albumin/Globulin Ratio 1.3 (1.0-2.3); Alkaline Phosphatase 135 U/L (39-117); Bilirubin,Direct < 0.2 mg/dL (0-0.3); Bilirubin,Total 0.6 mg/dL (0.1-1.0); Blood Urea Nitrogen 30 mg/dL (6-20); Calcium 8.8 mg/dL (8.6-10.4); Carbon Dioxide 32 mmol/L (22-30); Chloride 91 mmol/L (96-108); Glomerular Filtration Rate 81; Glucose 352 mg/dL (70-105); Lactate Dehydrogenase 198 U/L (135-225); Phosphorous 2.4 mg/dL (2.5-4.5); Triglycerides 147 mg/dL (<150); Uric Acid 9.1 mg/dL (2.5-8.0)
[2022-08-01] MEDS ORDERED: POTASSIUM CHLORIDE 20 MEQ TABLET PO SCH (19:24)
[2022-08-01] MEDS: INSULIN LISPRO 1 UNIT/0.01 ML UNIT SQ SCH ×4 (19:48→23:57)
[2022-08-01] MEDS ORDERED: ALBUTEROL SULFATE 60 PUFF INHALER INH PRN (20:46)
[2022-08-01] MEDS: 0.9 % SODIUM CHLORIDE 1,000 ML IV SCH (20:49)
[2022-08-01] MEDS ORDERED: INSULIN GLARGINE, HUMAN 1 UNIT/0.01 ML SQ SCH (21:00)
[2022-08-01] MEDS ORDERED: TENECTEPLASE 50 MG/10 ML VIAL IV ONE ×2 (21:43→21:47)
[2022-08-01 21:51] LABS: POC INR 1.1 (0.8-1.2); POC Pro Time 13.7 (11.9-14.5)
[2022-08-01] MEDS: 0.9 % SODIUM CHLORIDE 10 ML SYRINGE IV SCH (22:00)
[2022-08-01 22:19] LABS: Basophils # (Auto) 0.05 K/mcL (0.00-0.30); Basophils % (Auto) 0.6 % (0.0-2.0); Eosinophils # (Auto) 0.16 K/mcL (0.00-0.70); Eosinophils % (Auto) 1.9 % (0.0-7.0); Hematocrit 40.6 % (34.1-44.9); Hemoglobin 13.8 g/dL (11.2-15.7); Lymphocytes # (Auto) 2.74 K/mcL (1.50-4.80); Lymphocytes % (Auto) 32.2 % (15.5-49.0); Mean Cell Volume 86.2 fL (80.0-100.0); Mean Platelet Volume 9.9 fL (8.8-12.5); Monocytes # (Auto) 0.64 K/mcL (0.10-0.90); Monocytes % (Auto) 7.5 % (1.0-12.0); Neutrophils % (Auto) 57.4 % (38.0-78.0); Platelet Count 205 K/mcL (140-440); RBC 4.71 M/mcL (3.59-5.38); Red Cell Distribution Width 12.5 % (11.5-14.5); WBC 8.5 K/mcL (4.5-11.0)
[2022-08-01] MEDS ORDERED: hydrALAZINE 20 MG/ML VIAL IV PRN (22:23)
[2022-08-01] MEDS ORDERED: LABETALOL 5 MG/ML ML IV PRN (22:23)
[2022-08-01 22:50] LABS: Blood Urea Nitrogen 29 mg/dL (6-20); Carbon Dioxide 32 mmol/L (22-30); Chloride 90 mmol/L (96-108); Glomerular Filtration Rate 70; Glucose 293 mg/dL (70-105)
[2022-08-01] MEDS ORDERED: IOPAMIDOL 100 ML BOTTLE IV ONE (23:02)
[2022-08-02] MEDS: busPIRone 15 MG TABLET PO SCH ×4 (01:22→21:22)
[2022-08-02] MEDS: PRAMIPEXOLE 1 MG TABLET PO SCH ×3 (01:23→21:21)
[2022-08-02] MEDS: DOCUSATE SODIUM 100 MG CAPSULE PO SCH ×3 (01:23→21:22)
[2022-08-02] MEDS: DOXEPIN 25 MG CAPSULE PO SCH ×2 (01:24→21:22)
[2022-08-02] MEDS: CARBIDOPA/LEVODOPA 25/100 TABLET PO SCH ×4 (01:24→21:22)
[2022-08-02] MEDS: 0.9 % SODIUM CHLORIDE 1,000 ML IV SCH (01:25)
--- NOTE | 2022-08-02 02:37 | Cat Scan Report ---
CLINICAL INFORMATION: Decreased mental status COMPARISON: Head CT 02/01/2022 TECHNIQUE: 2.5 mm helical slices were obtained in the skull base to vertex. Following reconstruction, axial reformatted images were reviewed at bone and parenchymal windows. The exam was performed using radiation dose optimization techniques including, but not limited to, automated exposure control, adjustment of the mA and/or kV according to patient size and use of iterative reconstruction technique. FINDINGS: The ventricles, sulci, fissures, and cisterns are normal in size and configuration. No extra-axial fluid collections are identified. The cerebrum, brainstem and cerebellum are unremarkable. There is no evidence of hemorrhage, mass effect, or edema. Bone windows show no osseous abnormality. Mild mucosal thickening left maxillary sinus. IMPRESSION: No intracerebral abnormality. Interpreted and Authenticated by: Dean Green 08/02/22
--- NOTE | 2022-08-02 02:41 | Cat Scan Report ---
CLINICAL INFORMATION: Altered mental status COMPARISON: None. TECHNIQUE: 80 cc of Isovue-370 were injected intravenously , and using SmartPrep to maximize cerebral arterial opacification, 0.625 mm helical slices were obtained from the skull base through the cerebral vertex. Following reconstruction , sagittal, coronal and axial reformatted images were processed and reviewed at multiple windows and levels. 3D volume rendered and MIP images were acquired at a independent workstation. The exam was performed using radiation dose optimization techniques including, but not limited to, automated exposure control, adjustment of the mA and/or kV according to patient size and use of iterative reconstruction technique. FINDINGS: The intracranial internal carotid, vertebral, basilar, anterior, middle and posterior cerebral arteries and their branches are well-opacified and normal in contour and caliber without significant stenosis, occlusion or other pathology. Superficial/deep cerebral veins and deep venous sinuses are widely patent IMPRESSION: Normal exam Interpreted and Authenticated by: Dean Green 08/02/22
--- NOTE | 2022-08-02 02:46 | Cat Scan Report ---
CLINICAL INFORMATION: Altered mental status. COMPARISON: None. TECHNIQUE: 80 cc of Isovue-300 were injected intravenously followed by 40 cc of normal saline flush. Using SmartPrep, 0.625 helical slices were obtained from the thoracic aortic arch through the [place] of [place]. Following reconstruction, 2.5 mm sagittal, coronal and axial reformatted images were processed. MIPS , 3-D volume rendering and CPR images were also constructed. The exam was performed using radiation dose optimization techniques including, but not limited to, automated exposure control, adjustment of the mA and/or kV according to patient size and use of iterative reconstruction technique. FINDINGS: The thoracic aortic arch is normal diameter with minimal intimal thickening and conventional aortic branching. The brachiocephalic, both subclavian, both common, internal and external carotid and both vertebral arteries are widely patent without significant abnormality. No soft tissue abnormality. IMPRESSION: Normal exam Interpreted and Authenticated by: Dean Green 08/02/22
[2022-08-02] MEDS: INSULIN LISPRO 1 UNIT/0.01 ML UNIT SQ SCH ×4 (02:56→21:15)
[2022-08-02] MEDS ORDERED: INSULIN LISPRO 1 UNIT/0.01 ML UNIT SQ ONE (06:01)
[2022-08-02 06:52] LABS: Hemoglobin A1C 10.9 % Hgb (4.0-6.0)
[2022-08-02 07:01] LABS: ALT/SGPT 19 U/L (<40); AST/SGOT 14 U/L (<32); Albumin 3.9 gm/dL (3.2-5.2); Albumin/Globulin Ratio 1.2 (1.0-2.3); Alkaline Phosphatase 127 U/L (39-117); Bilirubin,Direct 0.2 mg/dL (<0.3); Bilirubin,Total 0.7 mg/dL (0.1-1.0); Blood Urea Nitrogen 23 mg/dL (6-20); Calcium 9.2 mg/dL (8.6-10.4); Carbon Dioxide 31 mmol/L (22-30); Chloride 93 mmol/L (96-108); Globulin 3.2 gm/dL (2.2-3.7); Glomerular Filtration Rate 81; Glucose 300 mg/dL (70-105); Lactate Dehydrogenase 184 U/L (135-225); Phosphorous 2.8 mg/dL (2.5-4.5); Triglycerides 161 mg/dL (<150); Uric Acid 8.3 mg/dL (2.5-8.0)
[2022-08-02] MEDS ORDERED: 0.9 % SODIUM CHLORIDE 1,000 ML IV SCH (07:11)
[2022-08-02] MEDS: 0.9 % SODIUM CHLORIDE 10 ML SYRINGE IV SCH ×3 (07:20→22:00)
--- NOTE | 2022-08-02 07:27 | EKG ---
Merged With [facility] Test Date: 2022-08-01 Pat Name: Maggie Mccray Department: ICU Room: 120D Gender: Female [employer]: : 1965 Requested By: Wilbur Neil Order Number: [id number] Reading MD: Dean Vance M.D. Measurements Intervals [place] Rate: 77 P: 81 GA: 183 QRS: 10 QRSD: 134 T: 22 QT: 413 QTc: 468 Interpretive Statements Sinus rhythm Right bundle branch block Electronically Signed On 08-02-2022 7:26:40 PST by Dean Vance M.D. /store/[id number]
[2022-08-02] MEDS: LEVOTHYROXINE 75 MCG TABLET PO SCH (08:46)
[2022-08-02] MEDS: LEVOTHYROXINE 100 MCG TABLET PO SCH (08:46)
[2022-08-02] MEDS: PANTOPRAZOLE 40 MG TABLET PO SCH ×2 (08:46→17:06)
[2022-08-02] MEDS: ATORVASTATIN 40 MG TABLET PO SCH (08:47)
[2022-08-02] MEDS ORDERED: ENOXAPARIN 40 MG/0.4 ML SYRINGE SQ SCH (09:00)
[2022-08-02] MEDS ORDERED: INSULIN GLARGINE, HUMAN 1 UNIT/0.01 ML SQ SCH (09:00)
[2022-08-02] MEDS ORDERED: LABETALOL 5 MG/ML ML IV PRN (10:41)
[2022-08-02] MEDS ORDERED: hydrALAZINE 20 MG/ML VIAL IV PRN (10:41)
[2022-08-02] MEDS: POTASSIUM CHLORIDE 20 MEQ TABLET PO SCH ×2 (12:35→17:06)
[2022-08-02] MEDS: FERROUS SULFATE 325 MG TABLET PO SCH (12:36)
--- NOTE | 2022-08-02 12:58 | Cat Scan Report ---
CLINICAL INFORMATION: Evaluate for CVA. Extremity weakness. COMPARISON: Head CT 08/01/2022 TECHNIQUE: 2.5 mm helical slices were obtained in the skull base to vertex. Following reconstruction, axial reformatted images were reviewed at bone and parenchymal windows. The exam was performed using radiation dose optimization techniques including, but not limited to, automated exposure control, adjustment of the mA and/or kV according to patient size and use of iterative reconstruction technique. FINDINGS: The ventricles, sulci, fissures, and cisterns are normal in size and configuration. No extra-axial fluid collections are identified. The cerebrum, brainstem and cerebellum are unremarkable. There is no evidence of hemorrhage, mass effect, or edema. Bone windows show no osseous abnormality. IMPRESSION: Normal head CT without contrast. Interpreted and Authenticated by: Dean Green 08/02/22
[2022-08-02] MEDS: ACETAMINOPHEN 325 MG TABLET PO PRN (13:47)
[2022-08-02] MEDS: tiZANidine 4 MG TABLET PO PRN (15:11)
[2022-08-02] MEDS ORDERED: INSULIN LISPRO 1 UNIT/0.01 ML UNIT SQ SCH (17:00)
--- NOTE | 2022-08-02 17:53 | Internal Med Progress Note ---
SUBJECTIVE Subjective Patient information: Note initiated : 08/02/22 at 5:44 pm Service Date, if different from initiated Date: [] Patient: Maggie Mccray 57 y/o F admitted on 08/01/22 for High Blood Glucose. Chief Complaint: [] Interval history: Ms. Mccray is a 57 year old Female with a history of multiple comorbidities including type 2 diabetes mellitus, hypertension, heart failure with preserved ejection fraction, hypothyroidism, parkinsonism, obstructive sleep apnea, obesity, nonhealing right toe wound who was told to go to the ED from the wound care clinic for confusion. In the emergency department, the patient was found to have a blood sugar of greater than 500. There is no evidence of acidosis, no signs of systemic infection, or other acute process. The patient was started on IV fluid and IV insulin to correct hyperglycemia however that was limited by hypokalemia. Patient was then given IV and oral potassium replacement. Beta hydroxybutyrate was normal. Serum osmolality was elevated. Patient has hyperosmolar hyperglycemic syndrome, the cause is not known. The patient's mentation improved in the emergency department. Hospital medicine was consulted to admit the patient for further management. Upon examination, the patient does have a chronic appearing wound on her right #1 toe that does not appear infected. Patient does have some bilateral lower extremity pitting edema. She is on room air, alert and oriented and in no apparent distress. She said that she was recently transition from torsemide to Lasix which she has been taking 40 mg in the morning. In the ED, the patient said that she did not remember waking up this morning and vaguely remembers going to the wound care clinic. A couple hours after hospital admission at about 8:45 PM, the patient was noted to have what appeared to be new left-sided weakness. A code stroke was called, NIH stroke scale score was 9. A noncontrast CT head did not show any acute changes, specifically no evidence of hemorrhagic stroke. Stroke tele neurology was consulted and evaluated the patient. After examining the patient, neurology recommended giving tenecteplase for presumed acute ischemic stroke. Exclusion criteria for tenecteplase were reviewed, no exclusions identified. The risks and benefits of tenecteplase were discussed with the patient, the patient consented to receiving treatment for tenecteplase. I believe the patient does have capacity to to make that treatment decision. We reviewed the tenecteplase dose with neurology and provided the recommended dose. We will obtain a CTA head and neck tonight followed by an MRI brain tomorrow and complete the stroke work-up during this hospitalization. The patient will be n.p.o. until she is evaluated by speech therapy. 08/02 CTA head and neck were interpreted as normal. The patient was unable to get an MRI brain due to her body habitus. A repeat CT head without contrast was interpreted as normal. The patient continues to have some left-sided weakness. It is unclear if these are new changes or chronic. Glucose levels continue to be elevated, increased Lantus and prandial insulin. Speech therapy evaluated the patient and started a dysphagia diet. Echocardiogram obtained as part of the stroke work-up. No atrial fibrillation or atrial flutter noted on the media monitor. LDL elevated at 127. Started atorvastatin. Waiting to start aspirin as the patient received tenecteplase within the last 24 hours. Hemoglobin A1c was 10.9. Lactic acid was normal this morning. Physical exam Head: Atraumatic, normal inspection. Eyes: normal appearance, no scleral icterus. Neck: full ROM Respiratory: no respiratory distress. Cardiovascular: normal rate and rhythm, S1, S2. GI/Abdominal: soft, nontender, no guarding. Extremities: full range of motion, nontender. Neurological: Left upper extremity weakness, left lower extremity weakness, mild left facial droop. Psychiatric: normal mood. Skin: Chronic appearing wound on right toe does not appear infected. Constitutional Vitals: Vital Signs Temp Pulse Resp BP Pulse Ox O2 Del Method 98.2 F 74 13 128/90 95 Room Air 08/02/22 16:50 08/02/22 16:50 08/02/22 16:50 08/02/22 16:50 08/02/22 16:50 08/02/22 16:50 Period Temp Pulse Resp BP Sys/Lindo Pulse Ox O2 Del Method O2 Flow Rate Last 24 Hr 97.0 F-98.2 F 72-88 11-24 117-156/53-117 92-99 Room Air-Room Air Intake and Output 08/02/22 08/02/22 08/02/22 03:59 11:59 19:59 Intake Total 1391 1080 Output Total 351 1025 350 Balance -351 366 730 Weight 148.098 kg 148.098 kg Patient Weight 08/03/22 03:59 Weight 148.098 kg Intake & Output: Intake & Output 08/02/22 08/02/22 08/02/22 03:59 11:59 19:59 Intake Total 1391 1080 Output Total 351 1025 350 Balance -351 366 730 Weight 148.098 kg 148.098 kg Intake: IV 1151 Sodium Chloride 0.9% 1,000 ml @ 1151 75 mls/hr IV .[id number] [facility] Rx#: [id number] Oral 240 1080 Output: Void Amount 350 1025 350 # of times incontinent of urine 1 Other: Meal Lunch Percent of Meal Consumed 100% Feeding Ability Assist with Tray Set Up Urine Appearance Clear Urine Color Yellow # Voids 1 OBJ DATA Labs 08/01/22 21:50 08/02/22 05:28 Labs: Abnormal Lab Results 08/02/22 08/02/22 08/01/22 05:28 05:27 21:50 POC VBG pH POC VBG pCO2 at Temp POC VBG pO2 POC VBG HCO3 POC VBG Total CO2 POC Venous O2 Sat POC VBG Base Excess VBG Lactic Acid POC Sodium Sodium 132 L POC Potassium Potassium 3.2 L 3.1 L POC Chloride Chloride 93 L 90 L Carbon Dioxide 31 H 32 H POC Total CO2 POC BUN BUN 23 H 29 H Glucose 300 H 293 H POC Glucose Hemoglobin A1c 10.9 H Osmolality Uric Acid 8.3 H POC WB Ioniz Calcium Phosphorus Alkaline Phosphatase 127 H C-Reactive Protein Triglycerides 161 H LDL Cholesterol Direct 127 H 08/01/22 08/01/22 08/01/22 21:14 18:27 16:02 POC VBG pH POC VBG pCO2 at Temp POC VBG pO2 POC VBG HCO3 POC VBG Total CO2 POC Venous O2 Sat POC VBG Base Excess VBG Lactic Acid 2.4 H 2.5 H POC Sodium Sodium 131 L POC Potassium Potassium POC Chloride Chloride 91 L Carbon Dioxide 32 H POC Total CO2 POC BUN BUN 30 H Glucose 352 H POC Glucose Hemoglobin A1c Osmolality Uric Acid 9.1 H POC WB Ioniz Calcium Phosphorus 2.4 L Alkaline Phosphatase 135 H C-Reactive Protein Triglycerides LDL Cholesterol Direct 08/01/22 08/01/22 08/01/22 13:40 12:37 10:51 POC VBG pH 7.43 H POC VBG pCO2 at Temp 52.6 H POC VBG pO2 POC VBG HCO3 34.7 H POC VBG Total CO2 36.0 H POC Venous O2 Sat POC VBG Base Excess 10.0 H* VBG Lactic Acid 2.3 H POC Sodium Sodium POC Potassium Potassium POC Chloride Chloride Carbon Dioxide POC Total CO2 POC BUN BUN Glucose POC Glucose Hemoglobin A1c Osmolality 307 H Uric Acid POC WB Ioniz Calcium Phosphorus Alkaline Phosphatase C-Reactive Protein 0.90 H Triglycerides LDL Cholesterol Direct 08/01/22 08/01/22 08/01/22 10:51 10:26 10:25 POC VBG pH 7.48 H POC VBG pCO2 at Temp 51.4 H POC VBG pO2 44 H POC VBG HCO3 38.0 H POC VBG Total CO2 40.0 H POC Venous O2 Sat 81.0 H POC VBG Base Excess 14.0 H* VBG Lactic Acid 2.8 H POC Sodium 128 L Sodium 126 L POC Potassium 3.1 L Potassium 3.0 L POC Chloride 82 L Chloride 82 L Carbon Dioxide 31 H POC Total CO2 34.0 H POC BUN 44 H BUN 39 H Glucose 527 H* POC Glucose 527 H* Hemoglobin A1c Osmolality Uric Acid POC WB Ioniz Calcium 1.04 L Phosphorus Alkaline Phosphatase 178 H C-Reactive Protein Triglycerides LDL Cholesterol Direct Meds: Medications Acetaminophen (Acetaminophen 325 Mg Tablet) 650 mg PO Q4HP PRN; Protocol PRN Reason: Per Pain Protocol Last Admin: 08/02/22 13:47 Dose: 650 mg Albuterol Sulfate (Albuterol Sulfate 60 Puff Inhaler) 1 puff INH Q4HP PRN PRN Reason: shortness of breath or wheezin Atorvastatin Calcium (Atorvastatin 40 Mg Tablet) 40 mg PO DAILY [facility] Last Admin: 08/02/22 08:47 Dose: Not Given Buspirone HCl (Buspirone 15 Mg Tablet) 15 mg PO TID [facility] Last Admin: 08/02/22 15:11 Dose: 15 mg Carbidopa/Levodopa (Carbidopa/Levodopa 25/100 Tablet) 1 tab PO TID [facility] Last Admin: 08/02/22 15:11 Dose: 1 tab Dextrose (Dextrose 50% 50 Ml Vial) 0 ml IV UD PRN PRN Reason: Per Sliding Scale Diagnostic Test (Pha) (Accu-Chek 1 Each Strip) 1 each FS ACHS [facility] Last Admin: 08/02/22 17:05 Dose: 1 each Docusate Sodium (Docusate Sodium 100 Mg Capsule) 100 mg PO BID [facility] Last Admin: 08/02/22 08:47 Dose: Not Given Doxepin HCl (Doxepin 25 Mg Capsule) 25 mg PO QHS [facility] Last Admin: 08/02/22 01:24 Dose: Not Given Ferrous Sulfate (Ferrous Sulfate 325 Mg Tablet) 325 mg PO DAILY@1200 [facility] Last Admin: 08/02/22 12:36 Dose: 325 mg Glucose (Dextrose 31 Gm Oral.Susp) 15 gm PO PRN PRN PRN Reason: Hypoglycemia Hydralazine HCl (Hydralazine 20 Mg/Ml Vial) 20 mg IV Q4-6HP PRN PRN Reason: Hypertension Insulin Glargine (Insulin Glargine, Human 1 Unit/0.01 Ml) 40 unit SQ DAILY [facility] Last Admin: 08/02/22 09:30 Dose: 40 unit Insulin Human Lispro (Insulin Lispro 1 Unit/0.01 Ml Unit) 0 unit SQ [facility]; Protocol Last Admin: 08/02/22 17:05 Dose: 9 unit Insulin Human Lispro (Insulin Lispro 1 Unit/0.01 Ml Unit) 20 unit SQ [facility] Last Admin: 08/02/22 17:05 Dose: 20 unit Labetalol HCl (Labetalol 5 Mg/Ml Ml) 10 mg IV Q10M PRN PRN Reason: Hypertension Lactulose (Lactulose 20 Gm/30 Ml Oral.Niesha) 10 gm PO DAILYP PRN PRN Reason: Constipation Levothyroxine Sodium (Levothyroxine 100 Mcg Tablet) 200 mcg PO ACB [facility] Last Admin: 08/02/22 08:46 Dose: Not Given Levothyroxine Sodium (Levothyroxine 75 Mcg Tablet) 75 mcg PO QAMAC [facility] Last Admin: 08/02/22 08:46 Dose: Not Given Ondansetron HCl (Ondansetron 4 Mg/2 Ml Vial) 4 mg IV Q4HP PRN; Protocol PRN Reason: Nausea And Vomiting Pantoprazole Sodium (Pantoprazole 40 Mg Tablet) 40 mg PO BIDAC [facility] Last Admin: 08/02/22 17:06 Dose: 40 mg Pramipexole Dihydrochloride (Pramipexole 1 Mg Tablet) 2 mg PO BID [facility] Last Admin: 08/02/22 08:47 Dose: Not Given Senna (Sennosides 1 Tablet) 2 tab PO HSP PRN PRN Reason: Constipation Sodium Chloride (0.9 % Sodium Chloride 10 Ml Syringe) 10 ml IV Q8 [facility] Last Admin: 08/02/22 13:47 Dose: 10 ml Tizanidine HCl (Tizanidine 4 Mg Tablet) 2 mg PO TIDP PRN PRN Reason: muscle spasms Last Admin: 08/02/22 15:11 Dose: 2 mg A/P Narrative A/P Narrative: Assessment: 57 year old Female with a history of multiple comorbidities including type 2 diabetes mellitus, hypertension, heart failure with preserved ejection fraction, hypothyroidism, parkinsonism, obstructive sleep apnea, obesity, nonhealing right toe wound admitted for hyperosmolar hyperglycemic syndrome. Shortly after admission, the patient had left-sided weakness concerning for a stroke. The patient did receive tenecteplase after being emergently evaluated by telestroke neurology. Unable to obtain an MRI brain due to the patient's body habitus. The patient's left-sided symptoms are waxing and waning, it is unclear if the changes are new or chronic. #Hyperosmolar hyperglycemic syndrome #Left-sided weakness possibly due an acute ischemic stroke versus chronic changes #Type 2 diabetes mellitus, hemoglobin A1c 10.9 #Hypertension #Heart failure with preserved ejection fraction #Hypothyroidism #Parkinsonism #Obstructive sleep apnea #Nonhealing wound on right #1 toe #Obesity BMI 47 Plan -Lantus 40 units daily, Humalog 20 units AC at bedtime, correction Humalog SSI high-dose for now. -Discontinue IV fluid -Monitor potassium closely, replace as needed. -Permissive blood pressures for now given possible acute stroke, labetalol and hydralazine IV as needed. -Follow-up blood cultures taken in the ED. -Resume home BuSpar, Sinemet, doxepin, levothyroxine, pramipexole, tizanidine, ferrous sulfate. -Holding home Bumex, metolazone, semaglutide, propranolol, spironolactone. -Holding home -Consistent carbohydrate diet. -ST, PT, OT -DVT prophylaxis: Lovenox. -CODE STATUS: DNR/DNI Time Spent With Patient Time: Total time spent is greater than 50% in coordination of care (as documented) at patient's floor/unit and/or counseling patient: QUALITY Stroke Symptom Onset Unknown: No VTE Deep Vein Thrombosis/Pulmonary Embolism Present on Admission: No
[2022-08-03] MEDS: tiZANidine 4 MG TABLET PO PRN (04:31)
[2022-08-03] MEDS: 0.9 % SODIUM CHLORIDE 10 ML SYRINGE IV SCH (05:54)
[2022-08-03 07:28] LABS: ALT/SGPT 6 U/L (<40); AST/SGOT 15 U/L (<32); Albumin 3.6 gm/dL (3.2-5.2); Albumin/Globulin Ratio 1.1 (1.0-2.3); Alkaline Phosphatase 109 U/L (39-117); Bilirubin,Direct < 0.2 mg/dL (0-0.3); Bilirubin,Total 0.5 mg/dL (0.1-1.0); Blood Urea Nitrogen 16 mg/dL (6-20); Calcium 9.1 mg/dL (8.6-10.4); Carbon Dioxide 28 mmol/L (22-30); Chloride 95 mmol/L (96-108); Globulin 3.2 gm/dL (2.2-3.7); Glomerular Filtration Rate 95; Glucose 267 mg/dL (70-105); Lactate Dehydrogenase 189 U/L (135-225); Phosphorous 2.5 mg/dL (2.5-4.5); Triglycerides 141 mg/dL (<150); Uric Acid 7.1 mg/dL (2.5-8.0)
[2022-08-03] MEDS ORDERED: FUROSEMIDE 40 MG/4 ML VIAL IV ONE (07:55)
[2022-08-03] MEDS ORDERED: POTASSIUM CHLORIDE 20 MEQ TABLET PO ONE (07:55)
[2022-08-03] MEDS: LEVOTHYROXINE 100 MCG TABLET PO SCH (07:59)
[2022-08-03] MEDS: LEVOTHYROXINE 75 MCG TABLET PO SCH (07:59)
[2022-08-03] MEDS: PANTOPRAZOLE 40 MG TABLET PO SCH (08:00)
[2022-08-03] MEDS: ACETAMINOPHEN 325 MG TABLET PO PRN (08:05)
[2022-08-03] MEDS: INSULIN LISPRO 1 UNIT/0.01 ML UNIT SQ SCH ×4 (08:44→12:00)
[2022-08-03] MEDS: ATORVASTATIN 40 MG TABLET PO SCH (08:46)
[2022-08-03] MEDS: DOCUSATE SODIUM 100 MG CAPSULE PO SCH (08:47)
[2022-08-03] MEDS: busPIRone 15 MG TABLET PO SCH ×2 (08:48→14:30)
[2022-08-03] MEDS: PRAMIPEXOLE 1 MG TABLET PO SCH (08:48)
[2022-08-03] MEDS: CARBIDOPA/LEVODOPA 25/100 TABLET PO SCH ×2 (08:49→14:30)
[2022-08-03] MEDS ORDERED: INSULIN GLARGINE, HUMAN 1 UNIT/0.01 ML SQ SCH (09:00)
[2022-08-03] MEDS ORDERED: DULoxetine 30 MG CAPSULE PO SCH (09:00)
[2022-08-03] MEDS: FERROUS SULFATE 325 MG TABLET PO SCH (12:00)
--- NOTE | 2022-08-03 13:24 | Discharge Summary ---
Discharge Provider Provider IMPORTANT FOLLOW-UP INFORMATION FOR PCP: Patient information: Note initiated : 08/03/22 at 1:19 pm Service Date, if different from initiated Date: [] Patient: Maggie Mccray 57 y/o F admitted on 08/01/22 for High Blood Glucose. Chief Complaint: [] Date of admission: 08/01/22 17:45 Discharge date: 08/03/22 Primary care physician: Radha Baez Consults: 08/01/22 Consult to Physician [CONS] Stat Comment: Consulting Provider: Wilbur Neil Reason For Exam: Physician to Consult COURSE Hospital Course Hospital course: Ms. Mccray is a 57 year old Female with a history of multiple comorbidities including type 2 diabetes mellitus, hypertension, heart failure with preserved ejection fraction, hypothyroidism, parkinsonism, obstructive sleep apnea, obesity, nonhealing right toe wound who was told to go to the ED from the wound care clinic for confusion. In the emergency department, the patient was found to have a blood sugar of greater than 500. There is no evidence of acidosis, no signs of systemic infection, or other acute process. The patient was started on IV fluid and IV insulin to correct hyperglycemia however that was limited by hypokalemia. Patient was then given IV and oral potassium replacement. Beta hydroxybutyrate was normal. Serum osmolality was elevated. Patient has hyperosmolar hyperglycemic syndrome, the cause is not known. The patient's mentation improved in the emergency department. Hospital medicine was consulted to admit the patient for further management. Upon examination, the patient does have a chronic appearing wound on her right #1 toe that does not appear infected. Patient does have some bilateral lower extremity pitting edema. She is on room air, alert and oriented and in no apparent distress. She said that she was recently transition from torsemide to Lasix which she has been taking 40 mg in the morning. In the ED, the patient said that she did not remember waking up this morning and vaguely remembers going to the wound care clinic. A couple hours after hospital admission at about 8:45 PM, the patient was noted to have what appeared to be new left-sided weakness. A code stroke was called, NIH stroke scale score was 9. A noncontrast CT head did not show any acute changes, specifically no evidence of hemorrhagic stroke. Stroke tele neurology was consulted and evaluated the patient. After examining the patient, neurology recommended giving tenecteplase for presumed acute ischemic stroke. Exclusion criteria for tenecteplase were reviewed, no exclusions identified. The risks and benefits of tenecteplase were discussed with the patient, the patient consented to receiving treatment for tenecteplase. I believe the patient does have capacity to to make that treatment decision. We reviewed the tenecteplase dose with neurology and provided the recommended dose. We will obtain a CTA head and neck tonight followed by an MRI brain tomorrow and complete the stroke work-up during this hospitalization. The patient will be n.p.o. until she is evaluated by speech therapy. 08/02 CTA head and neck were interpreted as normal. The patient was unable to get an MRI brain due to her body habitus. A repeat CT head without contrast was interpreted as normal. The patient continues to have some left-sided weakness. It is unclear if these are new changes or chronic. Glucose levels continue to be elevated, increased Lantus and prandial insulin. Speech therapy evaluated the patient and started a dysphagia diet. Echocardiogram obtained as part of the stroke work-up. No atrial fibrillation or atrial flutter noted on the laboratory monitor. LDL elevated at 127. Started atorvastatin. Waiting to start aspirin as the patient received tenecteplase within the last 24 hours. Hemoglobin A1c was 10.9. Lactic acid was normal this morning. 08/03 Patient's blood sugar improved, but still in the 200s. The patient feels like he is back to her normal self, wants to discharge home. Discussed antiplatelets and statin for possible stroke, the patient declined. Is not clear if the patient had a stroke or not, we were not able to obtain an MRI brain due to the patient's body habitus. In hindsight, I feel that she did not have an acute stroke and instead her symptoms presented due to her Parkinson's disease occurring in the setting of an acute illness due to hyperosmolar hyperglycemic syndrome. Patient is discharged back to home, her caregiver will come to the hospital to take her home and help her there. I did increase the patient's Tresiba to 50 units daily, also changed her Humalog to 30 units with meals in addition to a high dose sliding scale. I will continue the patient's Ozempic at discharge as well as her other prior home medications. I encouraged the patient to reach out to her patient ambassador for further management regarding her diabetes mellitus which is difficult to manage. Physical exam Head: Atraumatic, normal inspection. Eyes: normal appearance, no scleral icterus. Neck: full ROM Respiratory: no respiratory distress. Cardiovascular: normal rate and rhythm, S1, S2. GI/Abdominal: soft, nontender, no guarding. Extremities: full range of motion, nontender. Neurological: Left upper extremity weakness, left lower extremity weakness, mild left facial droop. Psychiatric: normal mood. Skin: Chronic appearing wound on right toe does not appear infected. Discharge diagnosis: Hyperosmolar hyperglycemic syndrome Secondary discharge diagnosis: Possible acute ischemic stroke Time Spent with Patient Time attestation: Total time spent providing and/or coordinating discharge services: Time spent: Greater than 30 minutes EXAM Constitutional Vitals: Temp Pulse Resp BP Pulse Ox O2 Del Method O2 Flow Rate 97.0 F 87 28 H 126/83 95 Room Air 2 08/03/22 04:24 08/03/22 12:01 08/03/22 12:30 08/03/22 12:01 08/03/22 12:01 08/03/22 04:24 08/03/22 02:00 Discharge Data Data Completed and Pending Labs on day of discharge: Labs from last 24 hours 08/03/22 05:14 Sodium 136 Potassium 3.8 Chloride 95 L Carbon Dioxide 28 Anion Gap 13.0 BUN 16 Creatinine 0.7 GFR Calculation 95 Glucose 267 H Uric Acid 7.1 Calcium 9.1 Phosphorus 2.5 Magnesium 1.7 Total Bilirubin 0.5 Direct Bilirubin < 0.2 GGT 26 AST 15 ALT 6 Alkaline Phosphatase 109 Lactate Dehydrogenase 189 Total Protein 6.8 Albumin 3.6 Globulin 3.2 Albumin/Globulin Ratio 1.1 Triglycerides 141 Preliminary micro results at discharge 08/01/22 16:02 Blood Culture - Preliminary Blood 08/01/22 15:57 Blood Culture - Preliminary Blood Discharge Plan Patient/Caregiver Discharge Instructions Activity: increase activity as tolerated Diet: Consistent Carbohydrate Prescriptions: New insulin lispro [Humalog U-100 Insulin] 100 unit/mL Solution 30 unit subcut AC Qty: 10 12RF Rx Instructions: PROTOCOL: If HUMALOG/NOVALOG SC SLIDING, then SCALE; If FSBS < 70, then Give 4 Oz juice, or 15gm oral | Glucose, or 25ml D50W IV if;, then unable to take PO. Recheck in | 15 min and repeat if FSBS < 70; If FSBS 71-140, then NO COVERAGE; If FSBS 141-170, then 3 UNITS; If FSBS 171-200, then 6 UNITS; If FSBS 201-250, then 9 UNITS; If FSBS 251-300, then 12 UNITS; If FSBS 301-350, then 15 UNITS; If FSBS 351-400, then 18 UNITS; If FSBS > 400, then 20 UNITS; REPEAT Q2H X2 | CONTINUE FOLLOWING SLIDING; If SCALE; IF STILL > 400; CALL, then PHYSICIAN Continued duloxetine 60 mg capsule,delayed release(DR/EC) See Rx Instructions .ROUTE .COMPLEX 30 Days Qty: 60 2RF Rx Instructions: TAKE ONE CAPSULE BY MOUTH IN AM + ONE CAPSULE BY MOUTH AT NOON buspirone 15 mg tablet 15 mg PO TID Qty: 90 3RF Unifine PNTP MIS 8MM [id number] Misc 1 unit .Route ACHS Rx Instructions: Use to inject Victoza solifenacin 5 mg tablet 5 mg PO QDAY Qty: 90 3RF (DME) T.E.D. Knee Biwcso-V-Vnag Misc See Rx Instructions .Route Qty: 4 0RF Rx Instructions: As directed (DME) commode extra large See Rx Instructions .Route .MEDSUPPLY Qty: 1 0RF Rx Instructions: As directed doxepin 25 mg capsule 25 mg PO QHS Qty: 30 2RF mecobalamin (vitamin B12) 1,000 mcg PO QDAY multivitamin [Multiple Vitamins] Tablet 1 tab PO QDAY cholecalciferol (vitamin D3) 25 mcg (1,000 unit) capsule 25 mcg PO BID metolazone 2.5 mg tablet 2.5 mg PO .2xw aspirin 81 mg tablet,delayed release (DR/EC) 81 mg PO QAM (DME) pen needle, diabetic [BD Ultra-Fine Short Pen Needle] 31 gauge x 5/16" needle See Rx Instructions subcut TID Qty: 1200 Rx Instructions: As directed ferrous sulfate 325 mg (65 mg iron) tablet 325 mg PO QDAY spironolactone 100 mg tablet 25 mg PO QAM levothyroxine 200 mcg tablet 200 mcg PO QDAY lansoprazole 30 mg capsule,delayed release(DR/EC) 30 mg PO BID lidocaine 5 % adhesive patch,medicated 1 patch topical QDAY Qty: 15 0RF Rx Instructions: leave on most painful area for up to 12 hrs propranolol 120 mg capsule,extended release 24 hr 120 mg PO QDAY albuterol sulfate 90 mcg/actuation HFA aerosol inhaler 1 puff inhalation Q4H PRN (Reason: shortness of breath or wheezing) insulin degludec 25 unit auto-injector 25 units subcut (via wearable injectr) DAILY bumetanide 1 mg tablet 1 mg PO BID carbidopa-levodopa 25-100 mg tablet 1 tab PO TID levothyroxine 75 mcg tablet 75 mcg PO QDAY Ozempic 2 mg/dose (8 mg/3 mL) pen injector 2 mg subcut pramipexole 1 mg tablet 2 mg PO BID tizanidine 4 mg tablet 2 mg PO TID Rx Instructions: take 1/2 tablet morning and afternoon and 1 tab at night Changed insulin degludec [Tresiba FlexTouch U-100] 100 unit/mL (3 mL) insulin pen 50 unit subcut QAM Qty: 15 12RF Follow Up Plan Follow up with: Radha Baez ARNP [Primary Care Provider] - Patient Disposition: Home, Self-Care Overall status at discharge: patient is progressing back to baseline Discharge Orders: Discharge Order (Routine); Ordered 08/03/22 Ordered By: Wilbur CARSON VTE Deep Vein Thrombosis/Pulmonary Embolism Present on Admission: No
== END 2022-08-03 14:35 | disposition home or self-care (01) | DRG 637 ==
LOC: ED 10:01 → ICU 17:45
PROVIDERS: ADMIT Internal Medicine; ATTEND Internal Medicine

== ENCOUNTER 2023-09-15 13:50 | Inpatient (IN) ==
[2023-09-15] MEDS ORDERED: IOPAMIDOL 100 ML BOTTLE IV ONE ×2 (13:51)
[2023-09-15] MEDS: 0.9 % SODIUM CHLORIDE 1,780 ML IV ONE (14:28)
[2023-09-15] MEDS: ACETAMINOPHEN 1,000 MG/100 ML BAG IV ONE (14:29)
[2023-09-15 14:50] LABS: Basophils # (Auto) 0.06 K/mcL (0.00-0.30); Basophils % (Auto) 0.3 % (0.0-2.0); Eosinophils # (Auto) 0.03 K/mcL (0.00-0.70); Eosinophils % (Auto) 0.1 % (0.0-7.0); Hematocrit 47.7 % (34.1-44.9); Hemoglobin 16.2 g/dL (11.2-15.7); Lymphocytes # (Auto) 0.78 K/mcL (1.50-4.80); Lymphocytes % (Auto) 3.3 % (15.5-49.0); Mean Cell Volume 83.1 fL (80.0-100.0); Mean Platelet Volume 10.6 fL (8.8-12.5); Monocytes # (Auto) 0.89 K/mcL (0.10-0.90); Monocytes % (Auto) 3.8 % (1.0-12.0); Neutrophils % (Auto) 91.7 % (38.0-78.0); Platelet Count 208 K/mcL (140-440); RBC 5.74 M/mcL (3.59-5.38); WBC 23.6 K/mcL (4.5-11.0)
[2023-09-15 15:02] LABS: ALT/SGPT 14 U/L (<40); AST/SGOT 26 U/L (<32); Albumin 4.2 gm/dL (3.2-5.2); Albumin/Globulin Ratio 1.2 (1.0-2.3); Alkaline Phosphatase 120 U/L (39-117); Blood Urea Nitrogen 31 mg/dL (6-20); Calcium 9.5 mg/dL (8.6-10.4); Carbon Dioxide 26 mmol/L (22-30); Chloride 87 mmol/L (96-108); Globulin 3.6 gm/dL (2.2-3.7); Glomerular Filtration Rate 70; Glucose 267 mg/dL (70-105)
[2023-09-15] MEDS: ONDANSETRON 4 MG/2 ML VIAL IV ONE (15:36)
[2023-09-15] MEDS: MAGNESIUM OXIDE 400 MG TABLET PO ONE (15:36)
[2023-09-15] MEDS: VANCOMYCIN 1,500 MG in 0.9 % SODIUM CHLORIDE 500 ML IV SCH (15:58)
[2023-09-15] MEDS: HYDROmorphone 0.5 MG/0.5 ML SYRINGE IV PRN (15:59)
[2023-09-15] MEDS: VANCOMYCIN 1,000 MG in 0.9 % SODIUM CHLORIDE 250 ML IV ONE (16:00)
[2023-09-15 16:06] LABS: INR 1.2 (0.9-1.1); Prothrombin Time 15.9 sec (11.9-14.5)
[2023-09-15 17:51] LABS: Appearance,Urine HAZY (Clear); Bacteria,Urine FEW /hpf (0); Bilirubin,Urine Negative (Negative); Color,Urine YELLOW; Culture Indicated,Urine No; Glucose,Urine (UA) Negative (Negative); Ketones,Urine Negative (Negative); Leukocyte Esterase,Urine 25 /uL (Negative); Mucus,Urine FEW /hpf; Nitrate,Urine Negative (Negative); Protein,Urine Negative (Negative); Specific Gravity,Urine 1.034 (1.000-1.035); Urine Blood Negative (Negative); Urine Budding Yeast FEW /hpf; Urine RBC 3 /hpf (0-3); Urine Squamous Epithelial Cell 5 /hpf (0-4); Urine WBC 4 /hpf (0-4)
[2023-09-15 18:23] LABS: Amphetamine Screen,Urine None detected; Barbiturate Screen,Urine None detected; Benzodiazepines Screen,Urine None detected; Cannabinoid Screen,Urine None detected; Cocaine Screen,Urine None detected; Opiate Screen,Urine None detected; Oxycodone, Urine Screen None detected; Phencyclidine Screen,Urine None detected
[2023-09-15] MEDS ORDERED: POTASSIUM CHLORIDE 40 MEQ in DEXTROSE 5% IN WATER 500 ML IV PRN (19:47)
[2023-09-15] MEDS ORDERED: POLYETHYLENE GLYCOL 3350 17 GM PACKET PO PRN (19:47)
[2023-09-15] MEDS ORDERED: SENNOSIDES 1 TABLET PO PRN (19:47)
[2023-09-15] MEDS ORDERED: ONDANSETRON 4 MG/2 ML VIAL IV PRN (19:47)
[2023-09-15] MEDS ORDERED: POTASSIUM CHLORIDE 20 MEQ TABLET PO PRN ×2 (19:47)
[2023-09-15] MEDS ORDERED: IPRATROPIUM/ALBUTEROL 3 ML AMPUL.NEB NEB PRN (19:47)
[2023-09-15] MEDS ORDERED: DEXTROSE 31 GM ORAL.SUSP PO PRN (19:47)
[2023-09-15] MEDS ORDERED: MAGNESIUM SULFATE 2 GM/50 ML BAG IV PRN (19:47)
[2023-09-15] MEDS ORDERED: DEXTROSE 50% 50 ML VIAL IV PRN (19:47)
[2023-09-15] MEDS: MAGNESIUM SULFATE 8.12 MEQ/2 ML VIAL ONE (20:58)
[2023-09-15] MEDS: CLINDAMYCIN IN 0.9 % SOD CHLOR 600 MG/50 ML BAG IV SCH (21:20)
[2023-09-15] MEDS: MAGNESIUM SULFATE 1 GM/100 ML BAG IV SCH (21:21)
[2023-09-15] MEDS: INSULIN LISPRO 1 UNIT/0.01 ML UNIT SQ SCH (21:21)
[2023-09-15] MEDS: DOCUSATE SODIUM 100 MG CAPSULE PO SCH (21:21)
[2023-09-15] MEDS: HYDROmorphone 1 MG/ML SYRINGE IV PRN (21:22)
[2023-09-15] MEDS: 0.9 % SODIUM CHLORIDE 10 ML SYRINGE IV SCH (21:23)
[2023-09-15 22:07] LABS: Hemoglobin A1C 13.1 % Hgb (4.0-6.0)
[2023-09-15] MEDS: PRAMIPEXOLE 1 MG TABLET PO SCH (22:28)
[2023-09-15] MEDS: CARBIDOPA/LEVODOPA 25/100 TABLET PO SCH (22:29)
[2023-09-15] MEDS: APIXABAN 5 MG TABLET PO SCH (22:29)
[2023-09-15] MEDS: INSULIN GLARGINE, HUMAN 1 UNIT/0.01 ML SQ SCH (22:29)
[2023-09-15] MEDS: DOXEPIN 25 MG CAPSULE PO SCH (22:29)
[2023-09-16 06:34] LABS: ALT/SGPT < 5 U/L (<40); AST/SGOT 30 U/L (<32); Albumin 3.5 gm/dL (3.2-5.2); Alkaline Phosphatase 98 U/L (39-117); Bilirubin,Direct 0.4 mg/dL (<0.3); Bilirubin,Total 1.1 mg/dL (0.1-1.0); Blood Urea Nitrogen 26 mg/dL (6-20); Calcium 8.5 mg/dL (8.6-10.4); Carbon Dioxide 25 mmol/L (22-30); Chloride 90 mmol/L (96-108); Globulin 3.4 gm/dL (2.2-3.7); Glomerular Filtration Rate 70; Glucose 351 mg/dL (70-105); Lactate Dehydrogenase 190 U/L (135-225); Phosphorous 2.4 mg/dL (2.5-4.5); Triglycerides 92 mg/dL (<150); Uric Acid 6.7 mg/dL (2.5-8.0)
[2023-09-16] MEDS: PANTOPRAZOLE 40 MG TABLET PO SCH (07:19)
[2023-09-16] MEDS: ACETAMINOPHEN 325 MG TABLET PO PRN (07:19)
[2023-09-16 07:39] LABS: Basophils # (Auto) 0.07 K/mcL (0.00-0.30); Basophils % (Auto) 0.3 % (0.0-2.0); Eosinophils # (Auto) 0 K/mcL (0.00-0.70); Eosinophils % (Auto) 0 % (0.0-7.0); Hematocrit 44.2 % (34.1-44.9); Hemoglobin 14.4 g/dL (11.2-15.7); Lymphocytes # (Auto) 0.65 K/mcL (1.50-4.80); Lymphocytes % (Auto) 2.8 % (15.5-49.0); Mean Cell Volume 86.2 fL (80.0-100.0); Mean Corpuscular HGB Conc 32.6 g/dL (31.0-36.0); Mean Platelet Volume 10.7 fL (8.8-12.5); Monocytes # (Auto) 0.64 K/mcL (0.10-0.90); Monocytes % (Auto) 2.8 % (1.0-12.0); Neutrophils % (Auto) 93.3 % (38.0-78.0); Platelet Count 170 K/mcL (140-440); RBC 5.13 M/mcL (3.59-5.38); Red Cell Distribution Width 13.4 % (11.5-14.5); WBC 22.8 K/mcL (4.5-11.0)
[2023-09-16] MEDS ORDERED: PROPRANOLOL 120 MG PO SCH (09:00)
[2023-09-16 09:03] LABS: Thyroid Stimulating Hormone 0.17 uIU/mL (0.27-5.01)
[2023-09-16] MEDS: INSULIN GLARGINE, HUMAN 1 UNIT/0.01 ML SQ SCH (09:19)
[2023-09-16] MEDS: DULoxetine 30 MG CAPSULE PO SCH (09:19)
[2023-09-16] MEDS: PHOSPHORUS 250 MG TABLET PO SCH (09:19)
[2023-09-16] MEDS: PROPRANOLOL 60 MG CAP.XL.24H PO SCH (09:26)
[2023-09-16] MEDS: LEVOTHYROXINE 200 MCG PO SCH (09:27)
[2023-09-16] MEDS: LEVOTHYROXINE SODIUM 112 MCG TABLET PO SCH (12:17)
[2023-09-16] MEDS: INSULIN LISPRO 1 UNIT/0.01 ML UNIT SQ SCH (12:18)
[2023-09-16] MEDS: DOXYCYCLINE 100 MG in DEXTROSE 5% IN WATER 100 ML IV SCH (12:18)
[2023-09-16] MEDS: tiZANidine 4 MG TABLET PO PRN (20:05)
[2023-09-16] MEDS: busPIRone 5 MG TABLET PO SCH (20:07)
[2023-09-16] MEDS: PRAMIPEXOLE 1 MG TABLET PO SCH (20:07)
[2023-09-17 07:32] LABS: ALT/SGPT 11 U/L (<40); AST/SGOT 39 U/L (<32); Albumin 3.5 gm/dL (3.2-5.2); Alkaline Phosphatase 98 U/L (39-117); Bilirubin,Direct 0.3 mg/dL (<0.3); Bilirubin,Total 0.8 mg/dL (0.1-1.0); Blood Urea Nitrogen 25 mg/dL (6-20); Calcium 8.6 mg/dL (8.6-10.4); Carbon Dioxide 32 mmol/L (22-30); Chloride 90 mmol/L (96-108); Globulin 3.5 gm/dL (2.2-3.7); Glomerular Filtration Rate 70; Glucose 235 mg/dL (70-105); Lactate Dehydrogenase 193 U/L (135-225); Phosphorous 2.6 mg/dL (2.5-4.5); Triglycerides 107 mg/dL (<150); Uric Acid 6.5 mg/dL (2.5-8.0)
[2023-09-17 07:50] LABS: Basophils # (Auto) 0.03 K/mcL (0.00-0.30); Basophils % (Auto) 0.2 % (0.0-2.0); Eosinophils # (Auto) 0.05 K/mcL (0.00-0.70); Eosinophils % (Auto) 0.4 % (0.0-7.0); Hematocrit 41.8 % (34.1-44.9); Hemoglobin 13.9 g/dL (11.2-15.7); Lymphocytes # (Auto) 1.01 K/mcL (1.50-4.80); Lymphocytes % (Auto) 8.1 % (15.5-49.0); Mean Cell Volume 84.8 fL (80.0-100.0); Mean Corpuscular HGB Conc 33.3 g/dL (31.0-36.0); Mean Platelet Volume 10.9 fL (8.8-12.5); Monocytes % (Auto) 5.6 % (1.0-12.0); Platelet Count 158 K/mcL (140-440); RBC 4.93 M/mcL (3.59-5.38); Red Cell Distribution Width 13.5 % (11.5-14.5); WBC 12.5 K/mcL (4.5-11.0)
[2023-09-17] MEDS: NON FORMULARY MEDICATION 1 DOSE MISCELL (Insulin Aspart U-100 [Novolog Flexpen U-100 Insul SUB-Q SCH (08:38)
[2023-09-17] MEDS: FUROSEMIDE 40 MG/4 ML VIAL IV ONE (10:30)
[2023-09-17] MEDS: FUROSEMIDE 80 MG TABLET PO ONE (12:37)
[2023-09-17] MEDS: INSULIN LISPRO 1 UNIT/0.01 ML UNIT SQ SCH ×2 (12:39)
== END 2023-09-17 13:55 | disposition home or self-care (01) | DRG 872 ==
LOC: ED 13:50 → ICU 19:42 → MEDSUR 09-16 15:05
PROVIDERS: ADMIT Internal Medicine; ATTEND Internal Medicine

== ENCOUNTER 2024-02-08 11:25 | Inpatient (IN) ==
[2024-02-08 12:15] LABS: Basophils # (Auto) 0.03 K/mcL (0.00-0.30); Basophils % (Auto) 0.4 % (0.0-2.0); Eosinophils # (Auto) 0.11 K/mcL (0.00-0.70); Eosinophils % (Auto) 1.3 % (0.0-7.0); Hemoglobin 13.3 g/dL (11.2-15.7); Lymphocytes # (Auto) 1.62 K/mcL (1.50-4.80); Lymphocytes % (Auto) 19.4 % (15.5-49.0); Mean Cell Volume 85.5 fL (80.0-100.0); Mean Corpuscular HGB Conc 33.3 g/dL (31.0-36.0); Mean Platelet Volume 9.6 fL (8.8-12.5); Monocytes # (Auto) 0.58 K/mcL (0.10-0.90); Monocytes % (Auto) 6.9 % (1.0-12.0); Neutrophils % (Auto) 71.6 % (38.0-78.0); Platelet Count 196 K/mcL (140-440); RBC 4.68 M/mcL (3.59-5.38); WBC 8.4 K/mcL (4.5-11.0)
[2024-02-08] MEDS ORDERED: DAPTOmycin 500 MG VIAL IV SCH (12:30)
[2024-02-08 12:32] LABS: proBNP 51.1 pg/mL (<125.0)
[2024-02-08] MEDS: fentaNYL 100 MCG/2 ML VIAL IV ONE ×2 (12:32→13:35)
[2024-02-08] MEDS: FUROSEMIDE 100 MG/10 ML VIAL IV ONE (12:32)
[2024-02-08 12:40] LABS: ALT/SGPT 6 U/L (<40); AST/SGOT 20 U/L (<32); Albumin 3.7 gm/dL (3.2-5.2); Albumin/Globulin Ratio 1.2 (1.0-2.3); Alkaline Phosphatase 127 U/L (39-117); Bilirubin,Total 0.3 mg/dL (0.1-1.0); Blood Urea Nitrogen 15 mg/dL (6-20); Calcium 8.8 mg/dL (8.6-10.4); Carbon Dioxide 25 mmol/L (22-30); Chloride 95 mmol/L (96-108); Glomerular Filtration Rate 94; Glucose 473 mg/dL (70-105); Sodium 131 mmol/L (133-145)
[2024-02-08] MEDS: DAPTOmycin 500 MG VIAL IV SCH (13:17)
[2024-02-08] MEDS: INSULIN REGULAR, HUMAN 1 UNIT/0.01 ML UNIT IV ONE (13:35)
[2024-02-08] MEDS ORDERED: DEXTROSE 31 GM ORAL.SUSP PO PRN (16:03)
[2024-02-08] MEDS ORDERED: DEXTROSE 50% 50 ML VIAL IV PRN (16:03)
[2024-02-08] MEDS: INSULIN LISPRO 1 UNIT/0.01 ML UNIT SQ SCH ×2 (17:37)
[2024-02-08 17:46] LABS: Creatinine, Spot Urine 21.9 mg/dL (28.0-217.0); Pro:Crea Ratio 0.32 (<0.20)
[2024-02-08] MEDS: APIXABAN 5 MG TABLET PO SCH (20:26)
[2024-02-08] MEDS: SENNOSIDES 1 TABLET PO SCH (20:26)
[2024-02-08] MEDS: KETOROLAC 15 MG/ML VIAL IV PRN (20:27)
[2024-02-08] MEDS: INSULIN GLARGINE, HUMAN 1 UNIT/0.01 ML SQ SCH (20:54)
[2024-02-08] MEDS: FUROSEMIDE 100 MG/10 ML VIAL IV SCH (22:32)
[2024-02-08] MEDS: 0.9 % SODIUM CHLORIDE 10 ML SYRINGE IV SCH (22:33)
[2024-02-08] MEDS: fentaNYL 100 MCG/2 ML VIAL IV PRN (23:52)
[2024-02-09] MEDS: ACETAMINOPHEN 325 MG TABLET PO PRN (05:17)
[2024-02-09 06:06] LABS: Blood Urea Nitrogen 16 mg/dL (6-20); Calcium 8.9 mg/dL (8.6-10.4); Carbon Dioxide 30 mmol/L (22-30); Chloride 94 mmol/L (96-108); Glomerular Filtration Rate 80; Glucose 241 mg/dL (70-105); Potassium 4.3 mmol/L (3.3-5.1); Sodium 135 mmol/L (133-145)
[2024-02-09 06:25] LABS: Estimated Average Glucose(eAG) 303 mg/dL; Hemoglobin A1C 12.2 % Hgb (4.0-6.0)
[2024-02-09] MEDS: acetaZOLAMIDE SOD 500 MG VIAL IV SCH (08:29)
[2024-02-09] MEDS: ONDANSETRON 4 MG/2 ML VIAL IV PRN (09:22)
[2024-02-09] MEDS: DULoxetine 30 MG CAPSULE PO SCH (11:48)
[2024-02-09] MEDS: INSULIN LISPRO 1 UNIT/0.01 ML UNIT SQ SCH (11:49)
[2024-02-09] MEDS: SEMAGLUTIDE SUB-Q SCH (14:35)
[2024-02-09] MEDS: tiZANidine 4 MG TABLET PO SCH (14:35)
[2024-02-09] MEDS: busPIRone 5 MG TABLET PO SCH (14:35)
[2024-02-09] MEDS: CARBIDOPA/LEVODOPA 25/100 TABLET PO SCH (14:35)
[2024-02-09] MEDS: CARBAMIDE PEROXIDE OTIC SOL 15ML AS SCH (15:35)
[2024-02-09] MEDS: FUROSEMIDE 100 MG/10 ML VIAL IV SCH (15:36)
[2024-02-09] MEDS: OMEPRAZOLE 20 MG CAPSULE PO SCH (16:58)
[2024-02-09] MEDS: PRAMIPEXOLE 1 MG TABLET PO SCH (20:26)
[2024-02-09] MEDS: DOXEPIN 25 MG CAPSULE PO SCH (20:26)
[2024-02-09] MEDS: INSULIN GLARGINE, HUMAN 1 UNIT/0.01 ML SQ SCH (20:27)
[2024-02-09] MEDS: APIXABAN 5 MG TABLET PO SCH (20:33)
[2024-02-10 06:29] LABS: Blood Urea Nitrogen 23 mg/dL (6-20); Carbon Dioxide 29 mmol/L (22-30); Chloride 92 mmol/L (96-108); Glomerular Filtration Rate 70; Glucose 282 mg/dL (70-105); Potassium 4.2 mmol/L (3.3-5.1); Sodium 133 mmol/L (133-145)
[2024-02-10] MEDS: LEVOTHYROXINE 100 MCG TABLET PO SCH (07:21)
[2024-02-10] MEDS: LEVOTHYROXINE 25 MCG TABLET PO SCH (07:22)
[2024-02-10] MEDS: INSULIN LISPRO 1 UNIT/0.01 ML UNIT SQ SCH (08:40)
[2024-02-10] MEDS: SPIRONOLACTONE 25 MG TABLET PO SCH (08:42)
[2024-02-10] MEDS: INSULIN GLARGINE, HUMAN 1 UNIT/0.01 ML SQ SCH (08:46)
[2024-02-10] MEDS: SENNOSIDES 1 TABLET PO SCH (08:51)
[2024-02-10] MEDS: POLYETHYLENE GLYCOL 3350 17 GM PACKET PO SCH (08:52)
[2024-02-10] MEDS: FUROSEMIDE 100 MG/10 ML VIAL IV SCH (08:52)
[2024-02-11 06:44] LABS: Blood Urea Nitrogen 26 mg/dL (6-20); Calcium 8.7 mg/dL (8.6-10.4); Carbon Dioxide 29 mmol/L (22-30); Chloride 93 mmol/L (96-108); Glomerular Filtration Rate 61; Glucose 264 mg/dL (70-105); Potassium 3.8 mmol/L (3.3-5.1); Sodium 133 mmol/L (133-145)
[2024-02-11] MEDS: LACTULOSE 20 GM/30 ML ORAL.SOL PO SCH (10:49)
[2024-02-11] MEDS: FUROSEMIDE 40 MG/4 ML VIAL IV SCH (16:17)
[2024-02-12 06:52] LABS: Blood Urea Nitrogen 21 mg/dL (6-20); Calcium 8.4 mg/dL (8.6-10.4); Carbon Dioxide 26 mmol/L (22-30); Chloride 96 mmol/L (96-108); Glomerular Filtration Rate 94; Glucose 243 mg/dL (70-105); Sodium 133 mmol/L (133-145)
[2024-02-12] MEDS: NORTRIPTYLINE 25 MG CAPSULE PO SCH (20:49)
[2024-02-12] MEDS: SIMVASTATIN 10 MG TABLET PO SCH (20:49)
[2024-02-13 06:49] LABS: Blood Urea Nitrogen 20 mg/dL (6-20); Calcium 8.4 mg/dL (8.6-10.4); Carbon Dioxide 27 mmol/L (22-30); Chloride 92 mmol/L (96-108); Glomerular Filtration Rate 80; Glucose 354 mg/dL (70-105); Potassium 3.8 mmol/L (3.3-5.1); Sodium 131 mmol/L (133-145)
[2024-02-13] MEDS: metFORMIN 500 MG TABLET PO SCH (17:00)
[2024-02-13] MEDS: IBUPROFEN 600 MG TABLET PO PRN (19:33)
[2024-02-13] MEDS: traMADol 50 MG TABLET PO PRN (19:33)
[2024-02-14] MEDS: SEMAGLUTIDE SUB-Q SCH (09:08)
[2024-02-14] MEDS: hydrOXYzine 25 MG TABLET PO PRN (19:04)
[2024-02-14] MEDS: ALBUTEROL SULFATE 60 PUFF INHALER INH PRN (21:06)
[2024-02-14] MEDS: CALCIUM CARBONATE 500 MG TAB.CHEW ONE (22:36)
[2024-02-14] MEDS: CALCIUM CARBONATE 500 MG TAB.CHEW CHEWED PRN (22:37)
== END 2024-02-15 13:12 | disposition home health service (06) | DRG 606 ==
LOC: ED 11:25 → MEDSUR 15:58
PROVIDERS: ADMIT Internal Medicine; ATTEND Internal Medicine

== ENCOUNTER 2024-04-13 13:55 | Observation (INO) ==
[2024-04-13] MEDS ORDERED: IOPAMIDOL 100 ML BOTTLE IV ONE (13:56)
[2024-04-13 15:06] LABS: Basophils # (Auto) 0.04 K/mcL (0.00-0.30); Basophils % (Auto) 0.4 % (0.0-2.0); Eosinophils # (Auto) 0.11 K/mcL (0.00-0.70); Eosinophils % (Auto) 1.2 % (0.0-7.0); Hematocrit 40.3 % (34.1-44.9); Hemoglobin 13.5 g/dL (11.2-15.7); Lymphocytes # (Auto) 2.39 K/mcL (1.50-4.80); Lymphocytes % (Auto) 26.1 % (15.5-49.0); Mean Cell Volume 84.1 fL (80.0-100.0); Mean Corpuscular HGB Conc 33.5 g/dL (31.0-36.0); Mean Platelet Volume 9.8 fL (8.8-12.5); Monocytes # (Auto) 0.74 K/mcL (0.10-0.90); Monocytes % (Auto) 8.1 % (1.0-12.0); Neutrophils % (Auto) 63.8 % (38.0-78.0); Platelet Count 209 K/mcL (140-440); RBC 4.79 M/mcL (3.59-5.38); Red Cell Distribution Width 13.8 % (11.5-14.5); WBC 9.2 K/mcL (4.5-11.0)
[2024-04-13 15:18] LABS: INR 1.1 (0.9-1.1); Partial Thromboplastin Time 32.6 sec (20.0-37.0); Prothrombin Time 14.9 sec (11.9-14.5)
[2024-04-13 15:28] LABS: ALT/SGPT < 5 U/L (<40); AST/SGOT 20 U/L (<32); Albumin 3.5 gm/dL (3.2-5.2); Albumin/Globulin Ratio 1.1 (1.0-2.3); Alkaline Phosphatase 102 U/L (39-117); Bilirubin,Total 0.4 mg/dL (0.1-1.0); Blood Urea Nitrogen 25 mg/dL (6-20); Calcium 8.7 mg/dL (8.6-10.4); Carbon Dioxide 29 mmol/L (22-30); Chloride 92 mmol/L (96-108); Globulin 3.2 gm/dL (2.2-3.7); Glomerular Filtration Rate 70; Glucose 117 mg/dL (70-105); Potassium 3.6 mmol/L (3.3-5.1); Sodium 133 mmol/L (133-145)
[2024-04-13] MEDS: ASPIRIN 81 MG TAB.CHEW CHEWED ONE (16:40)
[2024-04-13] MEDS: ATORVASTATIN 40 MG TABLET PO ONE (16:40)
[2024-04-13 17:02] LABS: Appearance,Urine Clear (Clear); Bacteria,Urine Few /hpf (0); Bilirubin,Urine Negative (Negative); Color,Urine Yellow; Glucose,Urine (UA) Negative (Negative); Ketones,Urine Negative (Negative); Leukocyte Esterase,Urine Negative /uL (Negative); Nitrate,Urine Negative (Negative); PH,Urine 6.5 (5.0-9.0); Protein,Urine Negative (Negative); Urine Blood Negative ery/mcL (Negative); Urine RBC 0 /hpf (0-3); Urine Squamous Epithelial Cell 5 /hpf (0-4); Urine WBC 2 /hpf (0-4); Urobilinogen,Urine Normal
[2024-04-13] MEDS ORDERED: DEXTROSE 31 GM ORAL.SUSP PO PRN (18:10)
[2024-04-13] MEDS ORDERED: POTASSIUM CHLORIDE 40 MEQ in DEXTROSE 5% IN WATER 500 ML IV PRN (18:10)
[2024-04-13] MEDS ORDERED: traMADol 50 MG TABLET PO PRN (18:10)
[2024-04-13] MEDS ORDERED: DEXTROSE 50% 50 ML VIAL IV PRN (18:10)
[2024-04-13] MEDS ORDERED: MAGNESIUM SULFATE 2 GM/50 ML BAG IV PRN (18:10)
[2024-04-13] MEDS ORDERED: IPRATROPIUM/ALBUTEROL 3 ML AMPUL.NEB NEB PRN (18:10)
[2024-04-13] MEDS ORDERED: ACETAMINOPHEN 160 MG/5 ML ORAL.SOL PO PRN (18:10)
[2024-04-13] MEDS ORDERED: METOCLOPRAMIDE 10 MG/2 ML VIAL IV PRN (18:10)
[2024-04-13] MEDS ORDERED: SENNOSIDES 1 TABLET PO PRN (18:10)
[2024-04-13] MEDS ORDERED: POLYETHYLENE GLYCOL 3350 17 GM PACKET PO PRN (18:10)
[2024-04-13] MEDS ORDERED: ONDANSETRON 4 MG/2 ML VIAL IV PRN (18:10)
[2024-04-13] MEDS ORDERED: POTASSIUM CHLORIDE 20 MEQ TABLET PO PRN ×2 (18:10)
[2024-04-13] MEDS: INSULIN LISPRO 1 UNIT/0.01 ML UNIT SQ SCH (18:47)
[2024-04-13 19:00] LABS: HDL Cholesterol 42 mg/dL (>40); LDL Cholesterol,Calculated 82 mg/dL (<100); Non-HDL Cholesterol 109 mg/dL (<130); Triglycerides 138 mg/dL (<150)
[2024-04-13] MEDS: DOCUSATE SODIUM 100 MG CAPSULE PO SCH (20:50)
[2024-04-13] MEDS: PRAMIPEXOLE 1 MG TABLET PO SCH (20:50)
[2024-04-13] MEDS: NORTRIPTYLINE 25 MG CAPSULE PO SCH (20:51)
[2024-04-13] MEDS: busPIRone 5 MG TABLET PO SCH (20:51)
[2024-04-13] MEDS: CARBIDOPA/LEVODOPA 25/100 TABLET PO SCH (20:51)
[2024-04-13] MEDS: tiZANidine 4 MG TABLET PO SCH (20:52)
[2024-04-13] MEDS: DOXEPIN 25 MG CAPSULE PO SCH (20:54)
[2024-04-13] MEDS: APIXABAN 5 MG TABLET PO SCH (21:35)
[2024-04-13] MEDS ORDERED: SUCRALFATE 1 GM TABLET PO PRN (21:41)
[2024-04-13] MEDS: NON FORMULARY MEDICATION 1 DOSE MISCELL (Insulin Glargine [Lantus Solostar U-100 Insulin] SUB-Q SCH (22:47)
[2024-04-14] MEDS: INSULIN GLARGINE, HUMAN 1 UNIT/0.01 ML SQ ONE (01:46)
[2024-04-14] MEDS: ACETAMINOPHEN 325 MG TABLET PO ONE ×2 (03:14→04:51)
[2024-04-14 06:55] LABS: ALT/SGPT < 5 U/L (<40); AST/SGOT 20 U/L (<32); Albumin 3.6 gm/dL (3.2-5.2); Albumin/Globulin Ratio 1.2 (1.0-2.3); Alkaline Phosphatase 102 U/L (39-117); Bilirubin,Direct 0.2 mg/dL (<0.3); Bilirubin,Total 0.5 mg/dL (0.1-1.0); Blood Urea Nitrogen 27 mg/dL (6-20); Calcium 8.9 mg/dL (8.6-10.4); Carbon Dioxide 29 mmol/L (22-30); Chloride 93 mmol/L (96-108); Glomerular Filtration Rate 70; Glucose 246 mg/dL (70-105); Lactate Dehydrogenase 167 U/L (135-225); Phosphorous 4.1 mg/dL (2.5-4.5); Potassium 3.6 mmol/L (3.3-5.1); Sodium 134 mmol/L (133-145); Triglycerides 157 mg/dL (<150)
[2024-04-14 07:07] LABS: Estimated Average Glucose(eAG) 292 mg/dL; Hemoglobin A1C 11.8 % Hgb (4.0-6.0)
[2024-04-14] MEDS: LEVOTHYROXINE 100 MCG TABLET PO SCH (07:25)
[2024-04-14] MEDS: PANTOPRAZOLE 40 MG TABLET PO SCH (07:25)
[2024-04-14] MEDS: LEVOTHYROXINE 25 MCG TABLET PO SCH (07:25)
[2024-04-14] MEDS: ASPIRIN 81 MG TAB.CHEW PO SCH (08:27)
[2024-04-14] MEDS: INSULIN GLARGINE, HUMAN 1 UNIT/0.01 ML SQ SCH (08:27)
[2024-04-14] MEDS: DULoxetine 30 MG CAPSULE PO SCH (08:27)
[2024-04-14] MEDS: BUMETANIDE 1 MG TABLET PO SCH ×2 (08:27→15:59)
[2024-04-14] MEDS: SPIRONOLACTONE 25 MG TABLET PO SCH (08:28)
[2024-04-14] MEDS: LORazepam 2 MG/ML VIAL IV ONE (09:43)
[2024-04-14] MEDS: ACETAMINOPHEN 325 MG TABLET PO PRN (11:48)
[2024-04-14] MEDS: tiZANidine 4 MG TABLET PO SCH ×2 (15:28→21:07)
[2024-04-14] MEDS: ATORVASTATIN 40 MG TABLET PO SCH (21:06)
== END 2024-04-15 11:38 | disposition home or self-care (01) ==
LOC: ICU 13:55 → ED 13:55 → ICU 18:10 → MEDSUR 04-14 16:38
PROVIDERS: ADMIT Internal Medicine; ATTEND Internal Medicine

== ENCOUNTER 2024-09-20 16:06 | Observation (INO) ==
[2024-09-20 17:52] LABS: Basophils # (Auto) 0.04 K/mcL (0.00-0.30); Basophils % (Auto) 0.5 % (0.0-2.0); Eosinophils % (Auto) 1.1 % (0.0-7.0); Hematocrit 40.9 % (34.1-44.9); Lymphocytes # (Auto) 2.15 K/mcL (1.50-4.80); Lymphocytes % (Auto) 24.5 % (15.5-49.0); Mean Cell Volume 81.6 fL (80.0-100.0); Mean Corpuscular HGB Conc 31.8 g/dL (31.0-36.0); Mean Platelet Volume 9.9 fL (8.8-12.5); Monocytes # (Auto) 0.49 K/mcL (0.10-0.90); Monocytes % (Auto) 5.6 % (1.0-12.0); Platelet Count 273 K/mcL (140-440); RBC 5.01 M/mcL (3.59-5.38); Red Cell Distribution Width 13.9 % (11.5-14.5); WBC 8.8 K/mcL (4.5-11.0)
[2024-09-20 17:59] LABS: Erythrocyte Sedimentation Rate 43 mm/hr (0-30)
[2024-09-20 18:02] LABS: C-Reactive Protein 0.37 mg/dL (0.03-0.80)
[2024-09-20 18:08] LABS: ALT/SGPT 22 U/L (<40); AST/SGOT 22 U/L (<32); Albumin 4.1 gm/dL (3.2-5.2); Albumin/Globulin Ratio 1.2 (1.0-2.3); Alkaline Phosphatase 141 U/L (39-117); Bilirubin,Total 0.4 mg/dL (0.1-1.0); Blood Urea Nitrogen 23 mg/dL (6-20); Calcium 9.5 mg/dL (8.6-10.4); Carbon Dioxide 29 mmol/L (22-30); Chloride 91 mmol/L (96-108); Globulin 3.4 gm/dL (2.2-3.7); Glomerular Filtration Rate 69; Glucose 408 mg/dL (70-105); Potassium 4.1 mmol/L (3.3-5.1); Sodium 132 mmol/L (133-145)
[2024-09-20] MEDS: ACETAMINOPHEN 325 MG TABLET PO ONE (19:41)
[2024-09-20] MEDS: ONDANSETRON 4 MG/2 ML VIAL IV ONE (20:55)
[2024-09-20] MEDS: diphenhydrAMINE 50 MG/ML VIAL IV ONE (20:56)
[2024-09-20] MEDS: PIPERACILLIN SODIUM/TAZOBACTAM 3.375 GM in DEXTROSE 5% IN WATER 50 ML IV ONE (20:58)
[2024-09-20] MEDS: VANCOMYCIN 2,000 MG in 0.9 % SODIUM CHLORIDE 500 ML IV ONE (21:32)
[2024-09-21] MEDS ORDERED: VANCOMYCIN PER PHARMACY IV SCH (01:07)
[2024-09-21] MEDS ORDERED: ONDANSETRON 4 MG/2 ML VIAL IV PRN (01:12)
[2024-09-21] MEDS: PIPERACILLIN SODIUM/TAZOBACTAM 3.375 GM in DEXTROSE 5% IN WATER 100 ML IV SCH (02:14)
[2024-09-21] MEDS: fentaNYL 100 MCG/2 ML VIAL IV PRN (06:01)
[2024-09-21] MEDS ORDERED: DEXTROSE 50% 50 ML VIAL IV PRN (09:19)
[2024-09-21] MEDS ORDERED: DEXTROSE 31 GM ORAL.SUSP PO PRN (09:19)
[2024-09-21 10:37] LABS: Phosphorous 3.4 mg/dL (2.5-4.5)
[2024-09-21] MEDS: VANCOMYCIN 1,500 MG in 0.9 % SODIUM CHLORIDE 500 ML IV SCH (10:50)
[2024-09-21] MEDS: KETOROLAC 30 MG/ML VIAL IV SCH (11:14)
[2024-09-21] MEDS: INSULIN LISPRO 1 UNIT/0.01 ML UNIT SQ SCH (12:07)
[2024-09-21] MEDS: GENTAMICIN PER PHARMACY IV ONE (12:10)
[2024-09-21] MEDS: GENTAMICIN SULFATE 300 MG in 0.9 % SODIUM CHLORIDE 100 ML IV SCH (12:27)
[2024-09-21] MEDS: PIPERACILLIN SODIUM/TAZOBACTAM 4.5 GM in DEXTROSE 5% IN WATER 100 ML IV SCH (13:29)
[2024-09-21 13:42] LABS: Hemoglobin A1C 12.6 % Hgb (4.0-6.0)
[2024-09-21] MEDS: 0.9 % SODIUM CHLORIDE 10 ML SYRINGE IV SCH (15:01)
[2024-09-21] MEDS ORDERED: SUCRALFATE 1 GM TABLET PO PRN (15:07)
[2024-09-21] MEDS: CARBIDOPA/LEVODOPA 25/100 TABLET PO SCH (15:25)
[2024-09-21] MEDS: INSULIN GLARGINE, HUMAN 1 UNIT/0.01 ML SQ SCH (15:29)
[2024-09-21] MEDS ORDERED: INSULIN GLARGINE, HUMAN 1 UNIT/0.01 ML SQ SCH ×2 (21:00)
[2024-09-21] MEDS: PRAMIPEXOLE 1 MG TABLET PO SCH (21:20)
[2024-09-21] MEDS: SENNOSIDES 1 TABLET PO SCH (21:20)
[2024-09-21] MEDS: DOXEPIN 25 MG CAPSULE PO SCH (21:20)
[2024-09-21] MEDS: APIXABAN 5 MG TABLET PO SCH (21:21)
[2024-09-21] MEDS: DOCUSATE SODIUM 100 MG CAPSULE PO SCH (21:21)
[2024-09-21] MEDS: FUROSEMIDE 40 MG TABLET PO SCH (21:21)
[2024-09-21] MEDS: NORTRIPTYLINE 25 MG CAPSULE PO SCH (21:21)
[2024-09-21] MEDS: oxyCODONE/APAP 5/325MG TABLET PO PRN (21:35)
[2024-09-22 06:43] LABS: ALT/SGPT < 5 U/L (<40); AST/SGOT 18 U/L (<32); Albumin 3.5 gm/dL (3.2-5.2); Albumin/Globulin Ratio 1.3 (1.0-2.3); Alkaline Phosphatase 106 U/L (39-117); Bilirubin,Direct < 0.2 mg/dL (0-0.3); Bilirubin,Total 0.4 mg/dL (0.1-1.0); Blood Urea Nitrogen 20 mg/dL (6-20); Calcium 8.3 mg/dL (8.6-10.4); Carbon Dioxide 27 mmol/L (22-30); Chloride 99 mmol/L (96-108); Globulin 2.8 gm/dL (2.2-3.7); Glomerular Filtration Rate 80; Glucose 192 mg/dL (70-105); Lactate Dehydrogenase 157 U/L (135-225); Phosphorous 3.8 mg/dL (2.5-4.5); Potassium 3.7 mmol/L (3.3-5.1); Sodium 137 mmol/L (133-145); Triglycerides 138 mg/dL (<150); Uric Acid 4.8 mg/dL (2.5-8.0)
[2024-09-22 06:51] LABS: Hematocrit 36.8 % (34.1-44.9); Hemoglobin 11.4 g/dL (11.2-15.7); Mean Cell Volume 82.3 fL (80.0-100.0); Mean Platelet Volume 9.2 fL (8.8-12.5); Platelet Count 216 K/mcL (140-440); RBC 4.47 M/mcL (3.59-5.38); Red Cell Distribution Width 13.9 % (11.5-14.5); WBC 5.8 K/mcL (4.5-11.0)
[2024-09-22] MEDS: LEVOTHYROXINE 100 MCG TABLET PO SCH (07:05)
[2024-09-22] MEDS: PANTOPRAZOLE 40 MG TABLET PO SCH (07:05)
[2024-09-22] MEDS ORDERED: LEVOTHYROXINE 50 MCG TABLET PO SCH (07:30)
[2024-09-22 07:35] LABS: Eosinophils % (Manual) 1 % (0-7); Hypochromasia 1+ (None Seen); Lymphocytes % 29 % (15-49); Microcytosis 1+ (None Seen); Monocytes % (Manual) 3 % (1-12); Platelet Estimate NORMAL (Normal); RBC Morphology ABNORMAL (Normal); Segmented Neutrophils % 67 % (38-78)
[2024-09-22] MEDS: PROPRANOLOL 60 MG CAP.XL.24H PO SCH (09:19)
[2024-09-22] MEDS: ASPIRIN 81 MG TAB.CHEW CHEWED SCH (09:19)
[2024-09-22] MEDS: SPIRONOLACTONE 25 MG TABLET PO SCH (09:19)
[2024-09-22] MEDS: BUMETANIDE 1 MG TABLET PO SCH (09:19)
[2024-09-22] MEDS: DULoxetine 30 MG CAPSULE PO SCH ×2 (09:19→12:09)
[2024-09-22] MEDS: INSULIN GLARGINE, HUMAN 1 UNIT/0.01 ML SQ SCH (09:20)
[2024-09-22] MEDS: LEVOFLOXACIN 750 MG/150 ML BAG IV SCH (11:36)
[2024-09-22] MEDS: LIDOCAINE 4% TOP PATCH TOPICAL SCH (11:36)
[2024-09-22] MEDS: ACETAMINOPHEN 325 MG TABLET PO PRN (21:00)
[2024-09-22] MEDS: LINEZOLID 600 MG TABLET PO SCH (21:06)
[2024-09-23] MEDS: ONDANSETRON 4 MG/2 ML VIAL IV PRN (00:30)
[2024-09-23 11:58] VITALS: TEMP 97.6; O2SAT 95
== END 2024-09-23 13:13 | disposition home or self-care (01) ==
LOC: ED 16:06 → MEDSUR 16:06
PROVIDERS: ADMIT Internal Medicine Critical Care Medicine; ATTEND Internal Medicine

== ENCOUNTER 2024-12-02 09:43 | Inpatient (IN) ==
[2024-12-02] MEDS ORDERED: IOPAMIDOL 100 ML BOTTLE IV ONE (09:44)
[2024-12-02 10:22] LABS: Basophils # (Auto) 0.03 K/mcL (0.00-0.30); Basophils % (Auto) 0.1 % (0.0-2.0); Eosinophils # (Auto) 0 K/mcL (0.00-0.70); Eosinophils % (Auto) 0 % (0.0-7.0); Hematocrit 36.0 % (34.1-44.9); Hemoglobin 11.4 g/dL (11.2-15.7); Lymphocytes # (Auto) 1.05 K/mcL (1.50-4.80); Lymphocytes % (Auto) 4.8 % (15.5-49.0); Mean Corpuscular HGB Conc 31.7 g/dL (31.0-36.0); Monocytes # (Auto) 0.92 K/mcL (0.10-0.90); Monocytes % (Auto) 4.2 % (1.0-12.0); Neutrophils % (Auto) 90.3 % (38.0-78.0); Platelet Count 249 K/mcL (140-440); RBC 4.60 M/mcL (3.59-5.38); WBC 21.7 K/mcL (4.5-11.0)
[2024-12-02 10:41] LABS: Alcohol,Blood < 0.010 gm/dL (<0.010)
[2024-12-02 11:01] LABS: Creatine Kinase 680 U/L (24-170)
[2024-12-02 11:18] LABS: INR 1.2 (0.9-1.1); Prothrombin Time 16.3 sec (11.9-14.5)
[2024-12-02 11:21] LABS: ALT/SGPT 18 U/L (<40); AST/SGOT 30 U/L (<32); Albumin 3.8 gm/dL (3.2-5.2); Albumin/Globulin Ratio 1.1 (1.0-2.3); Alkaline Phosphatase 94 U/L (39-117); Anion Gap 13.0 (8.0-16.0); Bilirubin,Total 0.8 mg/dL (0.1-1.0); Blood Urea Nitrogen 21 mg/dL (6-20); Calcium 8.1 mg/dL (8.6-10.4); Carbon Dioxide 26 mmol/L (22-30); Chloride 97 mmol/L (96-108); Globulin 3.4 gm/dL (2.2-3.7); Glucose 226 mg/dL (70-105); Potassium 2.8 mmol/L (3.3-5.1); Sodium 136 mmol/L (133-145)
[2024-12-02] MEDS: 0.9 % SODIUM CHLORIDE 1,000 ML IV ONE ×2 (11:30→19:10)
[2024-12-02] MEDS: POTASSIUM CHLORIDE 20 MEQ TABLET PO ONE (12:59)
[2024-12-02] MEDS: NALOXONE HCL 0.4 MG/ML VIAL IV ONE (13:15)
[2024-12-02 16:04] LABS: Bilirubin,Urine Negative (Negative); Color,Urine YELLOW; Glucose,Urine (UA) Negative (Negative); Ketones,Urine 5 mg/dL (Negative); Leukocyte Esterase,Urine Negative /uL (Negative); Mucus,Urine FEW /hpf; PH,Urine 5.0 (5.0-9.0); Protein,Urine 100 mg/dL (Negative); Specific Gravity,Urine 1.018 (1.000-1.035); Urobilinogen,Urine Negative
[2024-12-02 16:27] LABS: Barbiturate Screen,Urine None detected; Benzodiazepines Screen,Urine None detected; Fentanyl, Urine Screen None Detected; Opiate Screen,Urine None detected; Oxycodone, Urine Screen None detected; Phencyclidine Screen,Urine None detected
[2024-12-02] MEDS: PIPERACILLIN SODIUM/TAZOBACTAM 4.5 GM in DEXTROSE 5% IN WATER 50 ML IV ONE (16:41)
[2024-12-02 17:13] LABS: Basophils # (Auto) 0.04 K/mcL (0.00-0.30); Basophils % (Auto) 0.2 % (0.0-2.0); Eosinophils # (Auto) 0.01 K/mcL (0.00-0.70); Eosinophils % (Auto) 0.1 % (0.0-7.0); Hematocrit 38.5 % (34.1-44.9); Hemoglobin 11.6 g/dL (11.2-15.7); Lymphocytes # (Auto) 1.22 K/mcL (1.50-4.80); Lymphocytes % (Auto) 7.0 % (15.5-49.0); Mean Corpuscular HGB Conc 30.1 g/dL (31.0-36.0); Monocytes # (Auto) 0.93 K/mcL (0.10-0.90); Monocytes % (Auto) 5.3 % (1.0-12.0); Neutrophils % (Auto) 87.0 % (38.0-78.0); Platelet Count 263 K/mcL (140-440); RBC 4.79 M/mcL (3.59-5.38); WBC 17.5 K/mcL (4.5-11.0)
[2024-12-02] MEDS: VANCOMYCIN 1,500 MG in 0.9 % SODIUM CHLORIDE 500 ML IV ONE (17:22)
[2024-12-02 17:38] LABS: Anisocytosis 2+ (None Seen); Hypochromasia 1+ (None Seen); Microcytosis 1+ (None Seen); RBC Morphology ABNORMAL (Normal)
[2024-12-02] MEDS ORDERED: SENNOSIDES 1 TABLET PO PRN (18:37)
[2024-12-02] MEDS ORDERED: POTASSIUM CHLORIDE 20 MEQ TABLET PO PRN (18:37)
[2024-12-02] MEDS ORDERED: POLYETHYLENE GLYCOL 3350 17 GM PACKET PO PRN (18:37)
[2024-12-02] MEDS ORDERED: METOCLOPRAMIDE 10 MG/2 ML VIAL IV PRN (18:37)
[2024-12-02] MEDS ORDERED: MAGNESIUM SULFATE 2 GM/50 ML BAG IV PRN (18:37)
[2024-12-02] MEDS ORDERED: DEXTROSE 31 GM ORAL.SUSP PO PRN (18:37)
[2024-12-02] MEDS ORDERED: METOPROLOL TARTRATE 5 MG/5 ML VIAL IV PRN (18:37)
[2024-12-02] MEDS ORDERED: VANCOMYCIN PER PHARMACY IV SCH (18:37)
[2024-12-02] MEDS ORDERED: DEXTROSE 50% 50 ML VIAL IV PRN (18:37)
[2024-12-02] MEDS ORDERED: POTASSIUM CHLORIDE 40 MEQ in DEXTROSE 5% IN WATER 500 ML IV PRN (18:37)
[2024-12-02] MEDS ORDERED: LABETALOL HCL 20 MG/4 ML VIAL IV PRN (18:37)
[2024-12-02] MEDS ORDERED: ONDANSETRON 4 MG/2 ML VIAL IV PRN (18:37)
[2024-12-02] MEDS ORDERED: IPRATROPIUM/ALBUTEROL 3 ML AMPUL.NEB NEB PRN (18:37)
[2024-12-02] MEDS: 0.9 % SODIUM CHLORIDE 10 ML SYRINGE IV SCH (21:04)
[2024-12-02] MEDS ORDERED: PIPERACILLIN SODIUM/TAZOBACTAM 3.375 GM in DEXTROSE 5% IN WATER 100 ML IV SCH (21:30)
[2024-12-02] MEDS: INSULIN LISPRO 1 UNIT/0.01 ML UNIT SQ SCH (21:44)
[2024-12-02] MEDS: DOCUSATE SODIUM 100 MG CAPSULE PO SCH (21:44)
[2024-12-02] MEDS: ACETAMINOPHEN 325 MG TABLET PO PRN (21:44)
[2024-12-02] MEDS: DOXEPIN 25 MG CAPSULE PO SCH (21:45)
[2024-12-02] MEDS: PRAMIPEXOLE 1 MG TABLET PO SCH (21:45)
[2024-12-03] MEDS: PIPERACILLIN SODIUM/TAZOBACTAM 4.5 GM in DEXTROSE 5% IN WATER 100 ML IV SCH (00:25)
[2024-12-03 06:25] LABS: Basophils # (Auto) 0.03 K/mcL (0.00-0.30); Basophils % (Auto) 0.2 % (0.0-2.0); Eosinophils # (Auto) 0.09 K/mcL (0.00-0.70); Eosinophils % (Auto) 0.7 % (0.0-7.0); Hematocrit 35.4 % (34.1-44.9); Hemoglobin 10.8 g/dL (11.2-15.7); Lymphocytes # (Auto) 1.27 K/mcL (1.50-4.80); Lymphocytes % (Auto) 9.5 % (15.5-49.0); Mean Corpuscular HGB Conc 30.5 g/dL (31.0-36.0); Monocytes # (Auto) 0.92 K/mcL (0.10-0.90); Monocytes % (Auto) 6.9 % (1.0-12.0); Neutrophils % (Auto) 82.1 % (38.0-78.0); Platelet Count 211 K/mcL (140-440); RBC 4.36 M/mcL (3.59-5.38); WBC 13.4 K/mcL (4.5-11.0)
[2024-12-03 07:48] LABS: ALT/SGPT 19 U/L (<40); AST/SGOT 50 U/L (<32); Albumin 3.5 gm/dL (3.2-5.2); Albumin/Globulin Ratio 1.1 (1.0-2.3); Alkaline Phosphatase 86 U/L (39-117); Anion Gap 13.0 (8.0-16.0); Bilirubin,Direct 0.3 mg/dL (<0.3); Bilirubin,Total 0.6 mg/dL (0.1-1.0); Blood Urea Nitrogen 14 mg/dL (6-20); Calcium 7.9 mg/dL (8.6-10.4); Carbon Dioxide 26 mmol/L (22-30); Chloride 103 mmol/L (96-108); Creatine Kinase 1174 U/L (24-170); Globulin 3.2 gm/dL (2.2-3.7); Glucose 173 mg/dL (70-105); Phosphorous 2.5 mg/dL (2.5-4.5); Potassium 3.3 mmol/L (3.3-5.1); Sodium 142 mmol/L (133-145); Triglycerides 63 mg/dL (<150); Uric Acid 9.0 mg/dL (2.5-8.0)
[2024-12-03] MEDS: VANCOMYCIN 1,500 MG in 0.9 % SODIUM CHLORIDE 500 ML IV SCH (08:04)
[2024-12-03] MEDS ORDERED: SUCRALFATE 1 GM TABLET PO PRN (08:31)
[2024-12-03] MEDS ORDERED: OLOPATADINE 0.2% OP PRN (08:44)
[2024-12-03 09:48] LABS: Thyroid Stimulating Hormone 1.0 uIU/mL (0.27-5.01)
[2024-12-03] MEDS: LEVOTHYROXINE 100 MCG TABLET PO SCH (10:01)
[2024-12-03] MEDS: LEVOTHYROXINE 25 MCG TABLET PO SCH (10:01)
[2024-12-03] MEDS: APIXABAN 5 MG TABLET PO SCH (10:01)
[2024-12-03] MEDS: INSULIN GLARGINE, HUMAN 1 UNIT/0.01 ML SQ SCH (10:02)
[2024-12-03] MEDS: CARBIDOPA/LEVODOPA 25/100 TABLET PO SCH (12:12)
[2024-12-03] MEDS: POTASSIUM CHLORIDE 20 MEQ TABLET PO PRN (12:12)
[2024-12-03] MEDS: PANTOPRAZOLE 40 MG TABLET PO SCH (17:48)
[2024-12-03] MEDS: NORTRIPTYLINE 25 MG CAPSULE PO SCH (20:53)
[2024-12-03] MEDS: PROPRANOLOL 60 MG CAP.XL.24H PO SCH (20:53)
[2024-12-04 06:35] LABS: Basophils # (Auto) 0.03 K/mcL (0.00-0.30); Basophils % (Auto) 0.3 % (0.0-2.0); Eosinophils # (Auto) 0.19 K/mcL (0.00-0.70); Eosinophils % (Auto) 1.9 % (0.0-7.0); Hematocrit 37.0 % (34.1-44.9); Hemoglobin 11.1 g/dL (11.2-15.7); Lymphocytes # (Auto) 1.54 K/mcL (1.50-4.80); Lymphocytes % (Auto) 15.1 % (15.5-49.0); Mean Corpuscular HGB Conc 30.0 g/dL (31.0-36.0); Monocytes # (Auto) 0.77 K/mcL (0.10-0.90); Monocytes % (Auto) 7.5 % (1.0-12.0); Neutrophils % (Auto) 74.8 % (38.0-78.0); Platelet Count 235 K/mcL (140-440); RBC 4.49 M/mcL (3.59-5.38); WBC 10.2 K/mcL (4.5-11.0)
[2024-12-04 06:51] LABS: ALT/SGPT < 5 U/L (<40); AST/SGOT 38 U/L (<32); Albumin 3.6 gm/dL (3.2-5.2); Albumin/Globulin Ratio 1.1 (1.0-2.3); Alkaline Phosphatase 86 U/L (39-117); Anion Gap 11.0 (8.0-16.0); Bilirubin,Direct 0.3 mg/dL (<0.3); Bilirubin,Total 0.5 mg/dL (0.1-1.0); Blood Urea Nitrogen 13 mg/dL (6-20); Calcium 8.6 mg/dL (8.6-10.4); Carbon Dioxide 27 mmol/L (22-30); Chloride 97 mmol/L (96-108); Creatine Kinase 553 U/L (24-170); Globulin 3.4 gm/dL (2.2-3.7); Glucose 200 mg/dL (70-105); Phosphorous 2.1 mg/dL (2.5-4.5); Potassium 3.8 mmol/L (3.3-5.1); Sodium 135 mmol/L (133-145); Triglycerides 71 mg/dL (<150); Uric Acid 5.8 mg/dL (2.5-8.0)
[2024-12-04] MEDS: VANCOMYCIN 2,000 MG in 0.9 % SODIUM CHLORIDE 500 ML IV SCH (09:00)
[2024-12-04] MEDS: LINEZOLID 600 MG TABLET PO SCH (20:51)
[2024-12-05 07:27] VITALS: TEMP 98.6
[2024-12-05] MEDS ORDERED: HYDROCORTISONE 2.5% TOPICAL PRN (08:25)
[2024-12-05] MEDS: LIOTHYRONINE 5 MCG TABLET PO SCH (11:06)
[2024-12-05] MEDS: LEVOFLOXACIN 750 MG TABLET PO SCH (11:07)
[2024-12-05 11:33] VITALS: O2SAT 96
== END 2024-12-05 11:20 | disposition home or self-care (01) | DRG 871 ==
LOC: ED 09:43 → MEDSUR 18:07
PROVIDERS: ADMIT Internal Medicine; ATTEND Internal Medicine